=== PATIENT | male | born 1955 | race Caucasian/White ===

== ENCOUNTER 2021-01-04 08:52 | Emergency (ER) | payer OTHER ==
[2021-01-04 09:25] LABS: Urine Blood 3+ (Negative); Urine Glucose Negative (Negative); Urine Protein 3+ (Negative); Urine Specific Gravity >=1.030 (1.005-1.030)
--- NOTE | 2021-01-04 10:12 | EDPHYS ---
Physician Documentation [facility] Name: Carlos Woodall Age: 65 yrs Sex: Male : 1955 Arrival Date: 01/04/2021 Time: 08:55 Bed 5 Private MD: ED Physician Magdy Reid HPI: 01/04 09:16 This 65 yrs old Male presents to ER via Ambulatory with complaints of Urinary kdr Problem. 09:16 Onset: The symptoms/episode began/occurred 2 day(s) ago. Modifying factors: The kdr symptoms are alleviated by nothing, the symptoms are aggravated by urinating. Associated signs and symptoms: Pertinent positives: dysuria, fever, hematuria, nausea, Pertinent negatives: vomiting. Severity of symptoms: At their worst the symptoms were mild, moderate, just prior to arrival, in the emergency department the symptoms are unchanged. The patient has not experienced similar symptoms in the past. The patient has not recently seen a physician. The patient states that he has had pain with urination for the past 2 to 3 days. He denies any discharge from his penis prior to or during this episode. He has not had this kind of symptom before. He stated that he had obtained some ampicillin in [place] a few years ago and had been taking 1 of those every 6 hours for the last 2 days. He otherwise appears stable and nontoxic in the ED. Historical: - Allergies: 09:03 No Known Allergies; ss - Home Meds: 09:18 Metformin Oral [Active]; losartan oral [Active]; Allopurinol Oral [Active]; jl7 - PMHx: 09:18 Diabetes mellitus; Gout; Hypertensive disorder; jl7 - PSHx: 09:18 None; jl7 - Immunization history:: Client reports receiving the 2nd dose of the Covid vaccine. - Social history:: Smoking status: Patient denies any tobacco usage or history of. ROS: 09:16 Eyes: Negative for injury, pain, redness, and discharge, ENT: Negative for injury, kdr pain, and discharge, Neck: Negative for injury, pain, and swelling, Cardiovascular: Negative for chest pain, palpitations, and edema, Respiratory: Negative for shortness of breath, cough, wheezing, and pleuritic chest pain, Abdomen/GI: Negative for abdominal pain, nausea, vomiting, diarrhea, and constipation, Back: Negative for injury and pain, MS/Extremity: Negative for injury and deformity, Skin: Negative for injury, rash, and discoloration, Neuro: Negative for headache, weakness, numbness, tingling, and seizure activity. Psych: Negative for depression, anxiety, suicide ideation, homicidal ideation, and hallucinations, Allergy/Immunology: Negative for hives, rash, and allergies, Endocrine: Negative for neck swelling, polydipsia, polyuria, polyphagia, and marked weight changes, Hematologic/Lymphatic: Negative for swollen nodes, abnormal bleeding, and unusual bruising. 09:16 Constitutional: Positive for body aches, chills, fever, malaise. 09:16 : Positive for urinary symptoms, small amounts, hematuria, burning with urination, Negative for penile discharge, penile pain, testicular pain Exam: 09:16 Constitutional: This is a well developed, well nourished patient who is awake, alert, kdr and in no acute distress. Head/Face: Normocephalic, atraumatic. Eyes: Pupils equal round and reactive to light, extra-ocular motions intact. Lids and lashes normal. Conjunctiva and sclera are non-icteric and not injected. Cornea within normal limits. Periorbital areas with no swelling, redness, or edema. Neck: Trachea midline, no thyromegaly or masses palpated, and no cervical lymphadenopathy. Supple, full range of motion without nuchal rigidity, or vertebral point tenderness. No Meningismus. Chest/axilla: Normal chest wall appearance and motion. Nontender with no deformity. No lesions are appreciated. Cardiovascular: Regular rate and rhythm with a normal S1 and S2. No gallops, murmurs, or rubs. Normal PMI, no JVD. No pulse deficits. Respiratory: Lungs have equal breath sounds bilaterally, clear to auscultation and percussion. No rales, rhonchi or wheezes noted. No increased work of breathing, no retractions or nasal flaring. Abdomen/GI: Soft, non-tender, with normal bowel sounds. No distension or tympany. No guarding or rebound. No evidence of tenderness throughout. Back: No spinal tenderness. No costovertebral tenderness. Full range of motion. Skin: Warm, dry with normal turgor. Normal color with no rashes, no lesions, and no evidence of cellulitis. MS/ Extremity: Pulses equal, no cyanosis. Neurovascular intact. Full, normal range of motion. Neuro: Awake and alert, GCS 15, oriented to person, place, time, and situation. Cranial nerves II-XII grossly intact. Motor strength 5/5 in all extremities. Sensory grossly intact. Cerebellar exam normal. Normal gait. Psych: Awake, alert, with orientation to person, place and time. Behavior, mood, and affect are within normal limits. Vital Signs: 09:18 BP 110 / 63; Pulse 83; Resp 16; Temp 98; Pulse Ox 98% ; Pain 0/10; jl7 10:09 BP 118 / 63; Pulse 77; Resp 16; Pulse Ox 99% ; bp MDM: 09:16 Data reviewed: vital signs, nurses notes, lab test result(s), radiologic studies. kdr 10:11 Patient medically screened. kdr 01/04 09:11 Order name: Urine Culture kdr 01/04 09:24 Order name: Urine Dipstick-Ancillary; Complete Time: 10:09 EDNV 01/04 09:11 Order name: Urine Dipstick-Ancillary (obtain specimen); Complete Time: 09:11 kdr Administered Medications: 10:15 Drug: Bactrim (trimethoprim-sulfamethoxazole) (160 mg-800 mg (DS) 1 tablet Route: PO; jl7 10:22 Follow up: Response: Medication administered at discharge. jl7 10:15 Drug: Pyridium (phenazopyridine) 200 mg Route: PO; jl7 10:22 Follow up: Response: Medication administered at discharge. jl7 Disposition Summary: 01/04/21 10:11 Discharge Ordered Location: Home kdr Condition: Stable kdr Diagnosis - UTI/ Urinary tract infection, site not specified kdr - Acute cystitis with hematuria kdr Followup: kdr - With: Private Physician - When: 2 - 3 days - Reason: If symptoms return, Further diagnostic work-up, Recheck today's complaints, Continuance of care, Re-evaluation by your physician Followup: kdr - With: Wilberto Hines MD - When: 2 - 3 days - Reason: If symptoms return, Further diagnostic work-up, Recheck today's complaints, Continuance of care, Re-evaluation by your physician Discharge Instructions: - Discharge Summary Sheet kdr - Urinary Tract Infection, Adult, [id number] kdr Forms: - Medication Reconciliation Form kdr - Thank You Letter kdr - Antibiotic Education kdr Prescriptions: - Pyridium 200 mg Oral Tablet - take 1 tablet by ORAL route every 8 hours for 3 days; 9 tablet; Refills: 0, kdr Product Selection Permitted - Bactrim DS 800-160 mg Oral Tablet - take 1 tablet by ORAL route every 12 hours for 10 days; 20 tablet; Refills: 0, kdr Product Selection Permitted - Tylenol-Codeine #3 300 mg-30 mg Oral - take 1 tablet by ORAL route every 4-6 hours As needed; 10 tablet; Refills: 0, kdr Product Selection Permitted Signatures: Dispatcher [employer] EDMagdy Núñez MD MD kdr Claribel Farmer, NASIR RN ss Kathryn Monterroso RN RN jl7
--- NOTE | 2021-01-04 10:12 | ER ---
Nurse's Notes [facility] Name: Carlos Woodall Age: 65 yrs Sex: Male : 1955 Arrival Date: 01/04/2021 Time: 08:55 Bed 5 Private MD: Diagnosis: UTI/ Urinary tract infection, site not specified;Acute cystitis with hematuria Presentation: 01/04 09:01 Chief complaint: Patient states: Burning with urination, frequency and scant amount of ss blood in urine x 3 days. Coronavirus screen: Client denies travel out of the [place] in the last 14 days. Ebola Screen: Patient denies exposure to infectious person. Patient denies travel to an Ebola-affected area in the 21 days before illness onset. Initial Sepsis Screen: Does the patient meet any 2 criteria? No. Patient's initial sepsis screen is negative. Does the patient have a suspected source of infection? No. Patient's initial sepsis screen is negative. Risk Assessment: Do you want to hurt yourself or someone else? Patient reports no desire to harm self or others. Onset of symptoms was January 01, 2021. 09:01 Method Of Arrival: Ambulatory ss 09:01 Acuity: CRISTIANO 4 ss Triage Assessment: 09:18 General: Appears in no apparent distress. uncomfortable, Behavior is calm, cooperative, jl7 appropriate for age. Pain: Complains of pain in burning with urination Pain currently is 0 out of 10 on a pain scale. at worst was 6 out of 10 on a pain scale. Neuro: Level of Consciousness is awake, alert, obeys commands, Oriented to person, place, time, situation. Cardiovascular: Patient's skin is warm and dry. Respiratory: Airway is patent Respiratory effort is even, unlabored, Respiratory pattern is regular, symmetrical. : Reports burning with urination, since x 4 days pain with urination. Derm: Skin is pink, warm \T\ dry. Historical: - Allergies: 09:03 No Known Allergies; ss - Home Meds: 09:18 Metformin Oral [Active]; losartan oral [Active]; Allopurinol Oral [Active]; jl7 - PMHx: 09:18 Diabetes mellitus; Gout; Hypertensive disorder; jl7 - PSHx: 09:18 None; jl7 - Immunization history:: Client reports receiving the 2nd dose of the Covid vaccine. - Social history:: Smoking status: Patient denies any tobacco usage or history of. Screenin:04 Abuse screen: Denies threats or abuse. Denies injuries from another. Nutritional ss screening: No deficits noted. Tuberculosis screening: Never had TB. Fall Risk None identified. Assessment: 09:04 Reassessment: Pt ambulated to restroom with steady gait to give urine specimen. ss 09:20 General: See triage assessment. jl7 10:09 Reassessment: No changes from previously documented assessment. Patient and/or family bp updated on plan of care and expected duration. Pain level reassessed. Vital Signs: 09:18 BP 110 / 63; Pulse 83; Resp 16; Temp 98; Pulse Ox 98% ; Pain 0/10; jl7 10:09 BP 118 / 63; Pulse 77; Resp 16; Pulse Ox 99% ; bp ED Course: 08:55 Patient arrived in ED. mr 08:59 Kathryn Monterroso, RN is Primary Nurse. jl7 09:00 Patient has correct armband on for positive identification. Bed in low position. Call mh5 light in reach. Side rails up X 1. Warm blanket given. Pulse ox on. NIBP on. 09:02 Magdy Reid MD is Attending Physician. kdr 09:03 Triage completed. ss 09:03 Arm band placed on right wrist. ss 09:11 Urine Culture Sent. 5 09:11 Urine collected: clean catch specimen, ilya colored. 5 10:11 Wilberto Hines MD is Referral Physician. kdr 10:22 No provider procedures requiring assistance completed. Patient did not have IV access jl7 during this emergency room visit. Administered Medications: 10:15 Drug: Bactrim (trimethoprim-sulfamethoxazole) (160 mg-800 mg (DS) 1 tablet Route: PO; jl7 10:22 Follow up: Response: Medication administered at discharge. jl7 10:15 Drug: Pyridium (phenazopyridine) 200 mg Route: PO; jl7 10:22 Follow up: Response: Medication administered at discharge. jl7 Outcome: 10:11 Discharge ordered by . kdr 10:22 Discharged to home ambulatory. jl7 10:22 Condition: stable 10:22 Discharge instructions given to patient, Instructed on discharge instructions, follow up and referral plans. medication usage, Demonstrated understanding of instructions, follow-up care, medications, Prescriptions given X 3. 10:23 Patient left the ED. jl7 Signatures: Magdy Reid MD MD kdr Rivera, Harika mr Claribel Farmer, NASIR RN Belinda Winston [facility] Kathryn Monterroso RN RN jl7 Jt Limon RN RN bp
[2021-01-04 10:28] VITALS: TEMP 98
[2021-01-04 10:29] VITALS: BP 118/63; O2SAT 99
[2021-01-04] MEDS ORDERED: PHENAZOPYRIDINE 100MG TAB PO ONE (10:38)
[2021-01-04] MEDS ORDERED: SMZ./TMP. 800/160 MG TABLET ONE (10:38)
== END 2021-01-04 10:23 | disposition home or self-care (01) ==
LOC: ER 08:52
DX: N30.01 Acute cystitis with hematuria (principal); E11.9 Type 2 diabetes mellitus without complications; I10 Essential (primary) hypertension
CPT/HCPCS: 81003; 87086; 87088; 99284

== ENCOUNTER 2022-08-11 10:15 | Emergency (ER) | payer OTHER ==
--- OUTSIDE RECORDS SUMMARY | 2022-08-11 10:19 | XMS REPORT | Clinical Summary ---
:1955 Author Organization [facility] Address [address] [place] [address] Care Team Providers Name Role Phone Nathanael Jimenez MD Unavailable Misael Childress DO Unavailable Allergies Not on File Medications Not on file Active Problems Not on file Encounters Date Type Specialty Care Team Description 08/16/2021 Orders Only Head and Neck Surgery Nevaeh Pritchett PA after 08/11/2021 Social History Tobacco Use Types Packs/Day Years Used Date Smoking Tobacco: Never Assessed Sex Assigned at Date Recorded Not on file Job Start Date Occupation Industry Not on file Not on file Not on file Last Filed Vital Signs Not on file Plan of Treatment Health Maintenance Due Date Last Done Comments COVID-19 Vaccination (3 - Booster for 08/25/2020 06/30/2020 , 06/09/2020 Pfizer series) Results Not on fileafter 08/11/2021 Insurance Payer Benefit Plan / Subscriber ID Effective Dates Phone Addre ss Type Group HUMANA HUMANA GOLD [id number] 2020-Prese [address] [address] Medicare MEDICARE PLUS MEDICARE [facility] [phone] (Work) [id number] Carlos Woodall Personal/Family Self 1955 [address] [place] [address] Care Teams Credentialing Coordinator Relationship Specialty Start Date End Date Nathanael Jimenez MD PCP - External Referring Dermatology 07/18/21 [id number] [facility] [address] [place], [place] [id number] Misael Childress, PCP - External Primary Care Family Practice DO Provider [address] [place] [address] [address] [place], [place] [id number]
--- OUTSIDE RECORDS SUMMARY | 2022-08-11 10:22 | XMS REPORT | Continuity of Care Document ---
:1955 Author Organization [facility] t Address [address] [place] [address] [address] [place] [address] Care Team Providers Name Role Phone Misael Childress Attending Clinician Unavailable SYSTEM, PROVIDER NOT IN Attending Clinician Unavailable KOBE HDZ Attending Clinician Unavailable Nevaeh Cespedes Attending Clinician Unavailable KOBE HDZ Admitting Clinician Unavailable Payers Payer Name Policy Type Policy Number Effective Date Expiration Date S selena [employer] MEDICARE 53 [id number] 2020 [facility] 00:00:00 [facility] Problems Condition Condition Condition Status Onset Resolution Last Treating Co mments Source Name Details Category Date Date Treatment Clinician Date [id number] BPH loc w Problem Com mon urin [facility] obs/LUTS - [facility] [id number] Gross Problem Common hematuria [facility] [id number] Complicate Problem Com mon d UTI [facility] (urinary - [facility] tract [facility] infection) [facility] [id number] Decreased Problem Com mon hearing of [facility] right ear [facility] [id number] Other Problem Common chronic [facility] pain - [facility] Hearing Decreased Problem 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 [facility] [id number] Hepatitis, Problem Com mon chronic Spirit [facility] [id number] Noncomplia Problem Co mmon nce with [facility] dietary - [facility] restrictio n [facility] [id number] Type 2 [place] [id number] diabetes [facility] mellitus - [facility] with [facility] 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 [id number] Non-season Problem Com mon al [facility] allergic - [facility] rhinitis, [facility] [id number] GERD Problem Common without [facility] esophagiti - [facility] [id number] Chronic Problem Common gout of [facility] multiple - [facility] sites, [facility] [id number] Essential Problem Comm on hypertensi [facility] on - [facility] [id number] Mixed Problem Common hyperlipid [facility] emia - [facility] 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 Social History Social Habit Start Date Stop Date Quantity Comments Source History of Tobacco [facility] Sex Assigned At [birth year] [facility] 00:00:00 00:00:00 [place] [facility] Smoking Status Start Date Stop Date Source Never Smoker [facility] Medications Ordered Filled Start Stop Current Ordering Indication Dosage Frequency Signature Comments Components Source Medication Medication Date Date Medication? Clinician (SIG) Name Name Amoxicillin Amoxicillin 2022- No 1{table BID Amoxicilli -Pot -Pot 05-02 t} n-Pot Clavulanate Clavulanate 00:00: 00:00 Clavulanat 875-125 MG 875-125 MG 00 :00 e 875-125 MG Amoxicillin Amoxicillin 2022- No 1{table BID Amoxicilli -Pot -Pot 05-02 t} n-Pot Clavulanate Clavulanate 00:00: 00:00 Clavulanat 875-125 MG 875-125 MG 00 :00 e 875-125 MG Amoxicillin Amoxicillin 2022- No 1{table BID Amoxicilli -Pot -Pot 05-02 t} n-Pot Clavulanate Clavulanate 00:00: 00:00 Clavulanat 875-125 MG 875-125 MG 00 :00 e 875-125 MG methylPREDN methylPREDN 2021- No QD methylPRED ISolone 4 ISolone 4 01-07 NISolone 4 MG MG 00:00: 00:00 MG 00 :00 methylPREDN methylPREDN 2021- No QD methylPRED ISolone 4 ISolone 4 01-07 NISolone 4 MG MG 00:00: 00:00 MG 00 :00 methylPREDN methylPREDN 2021- No QD methylPRED ISolone 4 ISolone 4 01-07 NISolone 4 MG MG 00:00: 00:00 MG 00 :00 methylPREDN methylPREDN 2021- No QD methylPRED ISolone 4 ISolone 4 01-07 NISolone 4 MG MG 00:00: 00:00 MG 00 :00 Tamsulosin Tamsulosin 2020-04- No 1{capsu QD Tamsulosin HCl 0.4 MG HCl 0.4 MG 04-14 le} HCl 0.4 MG 00:00: 00:00 00 :00 Tamsulosin Tamsulosin 2020-04- No 1{capsu QD Tamsulosin HCl 0.4 MG HCl 0.4 MG 04-14 le} HCl 0.4 MG 00:00: 00:00 00 :00 Cefdinir Cefdinir 2020-04- No BID Cefdinir 300 MG 300 MG 04-14 300 MG 00:00: 00:00 00 :00 Cipro 500 Cipro 500 2020-04- No 1{table BID Cipro 500 MG MG 0-15 10-20 t} MG 00:00: 00:00 00 :00 Cipro 500 Cipro 500 2020-04- No 1{table BID Cipro 500 MG MG 0-15 10-20 t} MG 00:00: 00:00 00 :00 Promethazin Promethazin 2020-0 No 1{table Promethazi e HCl 12.5 e HCl 12.5 5-26 t_as_ne ne HCl MG MG 00:00: eded} 12.5 MG 00 Promethazin Promethazin 2021-0 No 1{table Promethazi e HCl 12.5 e HCl 12.5 5-26 t_as_ne ne HCl MG MG 00:00: eded} 12.5 MG 00 Promethazin Promethazin 2020-0 No 1{table Promethazi e HCl 12.5 e HCl 12.5 5-26 t_as_ne ne HCl MG MG 00:00: eded} 12.5 MG 00 Promethazin Promethazin 2020-0 No 1{table Promethazi e HCl 12.5 e HCl 12.5 5-26 t_as_ne ne HCl MG MG 00:00: eded} 12.5 MG 00 Promethazin Promethazin 2020-0 No 1{table Promethazi e HCl 12.5 e HCl 12.5 5-26 t_as_ne ne HCl MG MG 00:00: eded} 12.5 MG 00 Promethazin Promethazin 2020-0 No 1{table Promethazi e HCl 12.5 e HCl 12.5 5-26 t_as_ne ne HCl MG MG 00:00: eded} 12.5 MG 00 Promethazin Promethazin 2020-0 No 1{table Promethazi e HCl 12.5 e HCl 12.5 5-26 t_as_ne ne HCl MG MG 00:00: eded} 12.5 MG 00 Promethazin Promethazin 2020-0 No 1{table Promethazi e HCl 12.5 e HCl 12.5 5-26 t_as_ne ne HCl MG MG 00:00: eded} 12.5 MG 00 Promethazin Promethazin 1-0 No 1{table Promethazi e HCl 12.5 e HCl 12.5 5-26 t_as_ne ne HCl MG MG 00:00: eded} 12.5 MG 00 Promethazin Promethazin 1-0 No 1{table e HCl 12.5 e HCl 12.5 5-26 t_as_ne MG MG 00:00: eded} 00 Promethazin Promethazin 1-0 No 1{table Promethazi e HCl 12.5 e HCl 12.5 5-26 t_as_ne ne HCl MG MG 00:00: eded} 12.5 MG 00 Promethazin Promethazin 2020-0 No 1{table Promethazi e HCl 12.5 e HCl 12.5 5-26 t_as_ne ne HCl MG MG 00:00: eded} 12.5 MG 00 Promethazin Promethazin 2020-0 No 1{table Promethazi e HCl 12.5 e HCl 12.5 5-26 t_as_ne ne HCl MG MG 00:00: eded} 12.5 MG 00 Promethazin Promethazin 2020-0 No 1{table Promethazi e HCl 12.5 e HCl 12.5 5-26 t_as_ne ne HCl MG MG 00:00: eded} 12.5 MG 00 Promethazin Promethazin 2020-0 No 1{table Promethazi e HCl 12.5 e HCl 12.5 5-26 t_as_ne ne HCl MG MG 00:00: eded} 12.5 MG 00 Promethazin Promethazin 2020-0 No 1{table Promethazi e HCl 12.5 e HCl 12.5 5-26 t_as_ne ne HCl MG MG 00:00: eded} 12.5 MG 00 Promethazin Promethazin 2020-0 No 1{table Promethazi e HCl 12.5 e HCl 12.5 5-26 t_as_ne ne HCl MG MG 00:00: eded} 12.5 MG 00 Promethazin Promethazin 2020-0 No 1{table Promethazi e HCl 12.5 e HCl 12.5 5-26 t_as_ne ne HCl MG MG 00:00: eded} 12.5 MG 00 Promethazin Promethazin 1-0 No 1{table Promethazi e HCl 12.5 e HCl 12.5 5-26 t_as_ne ne HCl MG MG 00:00: eded} 12.5 MG 00 Promethazin Promethazin 1-0 No 1{table Promethazi e HCl 12.5 e HCl 12.5 5-26 t_as_ne ne HCl MG MG 00:00: eded} 12.5 MG 00 Promethazin Promethazin 1-0 No 1{table Promethazi e HCl 12.5 e HCl 12.5 5-26 t_as_ne ne HCl MG MG 00:00: eded} 12.5 MG 00 Promethazin Promethazin 2020-0 No 1{table Promethazi e HCl 12.5 e HCl 12.5 5-26 t_as_ne ne HCl MG MG 00:00: eded} 12.5 MG 00 Promethazin Promethazin 2020-0 No 1{table Promethazi e HCl 12.5 e HCl 12.5 5-26 t_as_ne ne HCl MG MG 00:00: eded} 12.5 MG 00 Promethazin Promethazin 2020-0 No 1{table Promethazi e HCl 12.5 e HCl 12.5 5-26 t_as_ne ne HCl MG MG 00:00: eded} 12.5 MG 00 Promethazin Promethazin 2020-0 No 1{table Promethazi e HCl 12.5 e HCl 12.5 5-26 t_as_ne ne HCl MG MG 00:00: eded} 12.5 MG 00 Promethazin Promethazin 2020-0 No 1{table Promethazi e HCl 12.5 e HCl 12.5 5-26 t_as_ne ne HCl MG MG 00:00: eded} 12.5 MG 00 Promethazin Promethazin 2020-0 No 1{table Promethazi e HCl 12.5 e HCl 12.5 5-26 t_as_ne ne HCl MG MG 00:00: eded} 12.5 MG 00 Promethazin Promethazin 2020-0 No 1{table Promethazi e HCl 12.5 e HCl 12.5 5-26 t_as_ne ne HCl MG MG 00:00: eded} 12.5 MG 00 Tamsulosin Tamsulosin No 1{capsu QD Tamsulosin HCl 0.4 MG HCl 0.4 MG le} HCl 0.4 MG Losartan Losartan No Losartan Potassium Potassium Potassium 25 MG 25 MG 25 MG Benzonatate Benzonatate No 1{capsu TID Benzonatat 200 MG 200 MG le} e 200 MG Losartan Losartan No Losartan Potassium Potassium Potassium 25 MG 25 MG 25 MG Tumersaid Tumersaid No Tumersaid Allopurinol Allopurinol No 1{table QD Allopurino 300 MG 300 MG t} l 300 MG metFORMIN metFORMIN No metFORMIN HCl ER 750 HCl ER 750 HCl ER 750 MG MG MG Losartan Losartan No Losartan Potassium Potassium Potassium 25 MG 25 MG 25 MG Tumersaid Tumersaid No Tumersaid Allopurinol Allopurinol No 1{table QD Allopurino 300 MG 300 MG t} l 300 MG metFORMIN metFORMIN No metFORMIN HCl ER 750 HCl ER 750 HCl ER 750 MG MG MG Losartan Losartan No Losartan Potassium Potassium Potassium 25 MG 25 MG 25 MG metFORMIN metFORMIN No metFORMIN HCl ER 750 HCl ER 750 HCl ER 750 MG MG MG Allopurinol Allopurinol No 1{table QD Allopurino 300 MG 300 MG t} l 300 MG Tumersaid Tumersaid No Tumersaid Losartan Losartan No Losartan Potassium Potassium Potassium 25 MG 25 MG 25 MG metFORMIN metFORMIN No metFORMIN HCl ER 750 HCl ER 750 HCl ER 750 MG MG MG Allopurinol Allopurinol No 1{table QD Allopurino 300 MG 300 MG t} l 300 MG Tumersaid Tumersaid No Tumersaid metFORMIN metFORMIN No metFORMIN HCl ER 750 HCl ER 750 HCl ER 750 MG MG MG Tumersaid Tumersaid No Tumersaid Losartan Losartan No 1{table QD Losartan Potassium Potassium t} Potassium 25 MG 25 MG 25 MG Losartan Losartan No Losartan Potassium Potassium Potassium 25 MG 25 MG 25 MG metFORMIN metFORMIN No BID metFORMIN HCl ER 750 HCl ER 750 HCl ER 750 MG MG MG Allopurinol Allopurinol No 1{table QD Allopurino 300 MG 300 MG t} l 300 MG Losartan Losartan No 1{table QD Losartan Potassium Potassium t} Potassium 25 MG 25 MG 25 MG metFORMIN metFORMIN No metFORMIN HCl ER 750 HCl ER 750 HCl ER 750 MG MG MG Tumersaid Tumersaid No Tumersaid Tamsulosin Tamsulosin No 1{capsu QD Tamsulosin HCl 0.4 MG HCl 0.4 MG le} HCl 0.4 MG Losartan Losartan No Losartan Potassium Potassium Potassium 25 MG 25 MG 25 MG metFORMIN metFORMIN No BID metFORMIN HCl ER 750 HCl ER 750 HCl ER 750 MG MG MG Allopurinol Allopurinol No 1{table QD Allopurino 300 MG 300 MG t} l 300 MG metFORMIN metFORMIN No metFORMIN HCl ER 750 HCl ER 750 HCl ER 750 MG MG MG Allopurinol Allopurinol No 1{table QD Allopurino 300 MG 300 MG t} l 300 MG Tamsulosin Tamsulosin No 1{capsu QD Tamsulosin HCl 0.4 MG HCl 0.4 MG le} HCl 0.4 MG Losartan Losartan No Losartan Potassium Potassium Potassium 25 MG 25 MG 25 MG Tumersaid Tumersaid No Tumersaid metFORMIN metFORMIN No metFORMIN HCl ER 750 HCl ER 750 HCl ER 750 MG MG MG Allopurinol Allopurinol No 1{table QD Allopurino 300 MG 300 MG t} l 300 MG Tamsulosin Tamsulosin No 1{capsu QD Tamsulosin HCl 0.4 MG HCl 0.4 MG le} HCl 0.4 MG Losartan Losartan No Losartan Potassium Potassium Potassium 25 MG 25 MG 25 MG Tumersaid Tumersaid No Tumersaid Tamsulosin Tamsulosin No 1{capsu QD HCl 0.4 MG HCl 0.4 MG le} Allopurinol Allopurinol No 1{table QD 300 MG 300 MG t} Tumersaid Tumersaid No metFORMIN metFORMIN No HCl ER 750 HCl ER 750 MG MG Losartan Losartan No Potassium Potassium 25 MG 25 MG metFORMIN metFORMIN No QD metFORMIN HCl ER 750 HCl ER 750 HCl ER 750 MG MG MG metFORMIN metFORMIN No metFORMIN HCl ER 750 HCl ER 750 HCl ER 750 MG MG MG Losartan Losartan No 1{table QD Losartan Potassium Potassium t} Potassium 25 MG 25 MG 25 MG Allopurinol Allopurinol No 1{table QD Allopurino 300 MG 300 MG t} l 300 MG Losartan Losartan No Losartan Potassium Potassium Potassium 25 MG 25 MG 25 MG Tamsulosin Tamsulosin No 1{capsu QD Tamsulosin HCl 0.4 MG HCl 0.4 MG le} HCl 0.4 MG Tumersaid Tumersaid No Tumersaid metFORMIN metFORMIN No QD metFORMIN HCl ER 750 HCl ER 750 HCl ER 750 MG MG MG metFORMIN metFORMIN No metFORMIN HCl ER 750 HCl ER 750 HCl ER 750 MG MG MG Losartan Losartan No 1{table QD Losartan Potassium Potassium t} Potassium 25 MG 25 MG 25 MG Allopurinol Allopurinol No 1{table QD Allopurino 300 MG 300 MG t} l 300 MG Losartan Losartan No Losartan Potassium Potassium Potassium 25 MG 25 MG 25 MG Tamsulosin Tamsulosin No 1{capsu QD Tamsulosin HCl 0.4 MG HCl 0.4 MG le} HCl 0.4 MG Tumersaid Tumersaid No Tumersaid metFORMIN metFORMIN No QD metFORMIN HCl ER 750 HCl ER 750 HCl ER 750 MG MG MG metFORMIN metFORMIN No metFORMIN HCl ER 750 HCl ER 750 HCl ER 750 MG MG MG Losartan Losartan No 1{table QD Losartan Potassium Potassium t} Potassium 25 MG 25 MG 25 MG Allopurinol Allopurinol No 1{table QD Allopurino 300 MG 300 MG t} l 300 MG Losartan Losartan No Losartan Potassium Potassium Potassium 25 MG 25 MG 25 MG Tamsulosin Tamsulosin No 1{capsu QD Tamsulosin HCl 0.4 MG HCl 0.4 MG le} HCl 0.4 MG Tumersaid Tumersaid No Tumersaid metFORMIN metFORMIN No QD metFORMIN HCl ER 750 HCl ER 750 HCl ER 750 MG MG MG metFORMIN metFORMIN No metFORMIN HCl ER 750 HCl ER 750 HCl ER 750 MG MG MG Losartan Losartan No 1{table QD Losartan Potassium Potassium t} Potassium 25 MG 25 MG 25 MG Allopurinol Allopurinol No 1{table QD Allopurino 300 MG 300 MG t} l 300 MG Losartan Losartan No Losartan Potassium Potassium Potassium 25 MG 25 MG 25 MG Tamsulosin Tamsulosin No 1{capsu QD Tamsulosin HCl 0.4 MG HCl 0.4 MG le} HCl 0.4 MG Tumersaid Tumersaid No Tumersaid metFORMIN metFORMIN No QD metFORMIN HCl ER 750 HCl ER 750 HCl ER 750 MG MG MG metFORMIN metFORMIN No metFORMIN HCl ER 750 HCl ER 750 HCl ER 750 MG MG MG Losartan Losartan No 1{table QD Losartan Potassium Potassium t} Potassium 25 MG 25 MG 25 MG Allopurinol Allopurinol No 1{table QD Allopurino 300 MG 300 MG t} l 300 MG Losartan Losartan No Losartan Potassium Potassium Potassium 25 MG 25 MG 25 MG Tamsulosin Tamsulosin No 1{capsu QD Tamsulosin HCl 0.4 MG HCl 0.4 MG le} HCl 0.4 MG Tumersaid Tumersaid No Tumersaid metFORMIN metFORMIN No QD metFORMIN HCl ER 750 HCl ER 750 HCl ER 750 MG MG MG metFORMIN metFORMIN No metFORMIN HCl ER 750 HCl ER 750 HCl ER 750 MG MG MG Losartan Losartan No 1{table QD Losartan Potassium Potassium t} Potassium 25 MG 25 MG 25 MG Allopurinol Allopurinol No 1{table QD Allopurino 300 MG 300 MG t} l 300 MG Losartan Losartan No Losartan Potassium Potassium Potassium 25 MG 25 MG 25 MG Tamsulosin Tamsulosin No 1{capsu QD Tamsulosin HCl 0.4 MG HCl 0.4 MG le} HCl 0.4 MG Tumersaid Tumersaid No Tumersaid metFORMIN metFORMIN No QD metFORMIN HCl ER 750 HCl ER 750 HCl ER 750 MG MG MG metFORMIN metFORMIN No metFORMIN HCl ER 750 HCl ER 750 HCl ER 750 MG MG MG Losartan Losartan No 1{table QD Losartan Potassium Potassium t} Potassium 25 MG 25 MG 25 MG Allopurinol Allopurinol No 1{table QD Allopurino 300 MG 300 MG t} l 300 MG Losartan Losartan No Losartan Potassium Potassium Potassium 25 MG 25 MG 25 MG Tamsulosin Tamsulosin No 1{capsu QD Tamsulosin HCl 0.4 MG HCl 0.4 MG le} HCl 0.4 MG Tumersaid Tumersaid No Tumersaid metFORMIN metFORMIN No QD metFORMIN HCl ER 750 HCl ER 750 HCl ER 750 MG MG MG metFORMIN metFORMIN No metFORMIN HCl ER 750 HCl ER 750 HCl ER 750 MG MG MG Losartan Losartan No Losartan Potassium Potassium Potassium 25 MG 25 MG 25 MG Tamsulosin Tamsulosin No 1{capsu QD Tamsulosin HCl 0.4 MG HCl 0.4 MG le} HCl 0.4 MG Tumersaid Tumersaid No Tumersaid metFORMIN metFORMIN No metFORMIN HCl ER 750 HCl ER 750 HCl ER 750 MG MG MG Tamsulosin Tamsulosin No 1{capsu QD Tamsulosin HCl 0.4 MG HCl 0.4 MG le} HCl 0.4 MG Losartan Losartan No 1{table QD Losartan Potassium Potassium t} Potassium 25 MG 25 MG 25 MG Losartan Losartan No Losartan Potassium Potassium Potassium 25 MG 25 MG 25 MG Allopurinol Allopurinol No 1{table QD Allopurino 300 MG 300 MG t} l 300 MG Tumersaid Tumersaid No Tumersaid metFORMIN metFORMIN No metFORMIN HCl ER 750 HCl ER 750 HCl ER 750 MG MG MG Tumersaid Tumersaid No Tumersaid Allopurinol Allopurinol No 1{table QD Allopurino 300 MG 300 MG t} l 300 MG Losartan Losartan No 1{table QD Losartan Potassium Potassium t} Potassium 25 MG 25 MG 25 MG Tamsulosin Tamsulosin No 1{capsu QD Tamsulosin HCl 0.4 MG HCl 0.4 MG le} HCl 0.4 MG Losartan Losartan No Losartan Potassium Potassium Potassium 25 MG 25 MG 25 MG Benzonatate Benzonatate No 1{capsu TID Benzonatat 200 MG 200 MG le} e 200 MG metFORMIN metFORMIN No metFORMIN HCl ER 750 HCl ER 750 HCl ER 750 MG MG MG Tumersaid Tumersaid No Tumersaid Allopurinol Allopurinol No 1{table QD Allopurino 300 MG 300 MG t} l 300 MG Losartan Losartan No 1{table QD Losartan Potassium Potassium t} Potassium 25 MG 25 MG 25 MG Tamsulosin Tamsulosin No 1{capsu QD Tamsulosin HCl 0.4 MG HCl 0.4 MG le} HCl 0.4 MG Losartan Losartan No Losartan Potassium Potassium Potassium 25 MG 25 MG 25 MG Benzonatate Benzonatate No 1{capsu TID Benzonatat 200 MG 200 MG le} e 200 MG Benzonatate Benzonatate No 1{capsu TID Benzonatat 200 MG 200 MG le} e 200 MG Allopurinol Allopurinol No 1{table QD Allopurino 300 MG 300 MG t} l 300 MG metFORMIN metFORMIN No metFORMIN HCl ER 750 HCl ER 750 HCl ER 750 MG MG MG Losartan Losartan No Losartan Potassium Potassium Potassium 25 MG 25 MG 25 MG Losartan Losartan No 1{table QD Losartan Potassium Potassium t} Potassium 25 MG 25 MG 25 MG Allopurinol Allopurinol No Allopurino 300 MG 300 MG l 300 MG Tamsulosin Tamsulosin No 1{capsu QD Tamsulosin HCl 0.4 MG HCl 0.4 MG le} HCl 0.4 MG Tumersaid Tumersaid No Tumersaid Losartan Losartan No Losartan Potassium Potassium Potassium 25 MG 25 MG 25 MG Allopurinol Allopurinol No 1{table QD Allopurino 300 MG 300 MG t} l 300 MG Benzonatate Benzonatate No 1{capsu TID Benzonatat 200 MG 200 MG le} e 200 MG metFORMIN metFORMIN No metFORMIN HCl ER 750 HCl ER 750 HCl ER 750 MG MG MG Tumersaid Tumersaid No Tumersaid Tamsulosin Tamsulosin No 1{capsu QD Tamsulosin HCl 0.4 MG HCl 0.4 MG le} HCl 0.4 MG Losartan Losartan No Losartan Potassium Potassium Potassium 25 MG 25 MG 25 MG Allopurinol Allopurinol No 1{table QD Allopurino 300 MG 300 MG t} l 300 MG Benzonatate Benzonatate No 1{capsu TID Benzonatat 200 MG 200 MG le} e 200 MG metFORMIN metFORMIN No metFORMIN HCl ER 750 HCl ER 750 HCl ER 750 MG MG MG Tumersaid Tumersaid No Tumersaid Tamsulosin Tamsulosin No 1{capsu QD Tamsulosin HCl 0.4 MG HCl 0.4 MG le} HCl 0.4 MG Losartan Losartan No Losartan Potassium Potassium Potassium 25 MG 25 MG 25 MG Allopurinol Allopurinol No 1{table QD Allopurino 300 MG 300 MG t} l 300 MG Benzonatate Benzonatate No 1{capsu TID Benzonatat 200 MG 200 MG le} e 200 MG metFORMIN metFORMIN No metFORMIN HCl ER 750 HCl ER 750 HCl ER 750 MG MG MG Tumersaid Tumersaid No Tumersaid Tamsulosin Tamsulosin No 1{capsu QD Tamsulosin HCl 0.4 MG HCl 0.4 MG le} HCl 0.4 MG Losartan Losartan No Losartan Potassium Potassium Potassium 25 MG 25 MG 25 MG Tamsulosin Tamsulosin No 1{capsu QD Tamsulosin HCl 0.4 MG HCl 0.4 MG le} HCl 0.4 MG Allopurinol Allopurinol No Allopurino 300 MG 300 MG l 300 MG Benzonatate Benzonatate No 1{capsu TID Benzonatat 200 MG 200 MG le} e 200 MG metFORMIN metFORMIN No metFORMIN HCl ER 750 HCl ER 750 HCl ER 750 MG MG MG Tumersaid Tumersaid No Tumersaid Losartan Losartan No Losartan Potassium Potassium Potassium 25 MG 25 MG 25 MG Tamsulosin Tamsulosin No 1{capsu QD Tamsulosin HCl 0.4 MG HCl 0.4 MG le} HCl 0.4 MG Allopurinol Allopurinol No Allopurino 300 MG 300 MG l 300 MG Benzonatate Benzonatate No 1{capsu TID Benzonatat 200 MG 200 MG le} e 200 MG metFORMIN metFORMIN No metFORMIN HCl ER 750 HCl ER 750 HCl ER 750 MG MG MG Tumersaid Tumersaid No Tumersaid metFORMIN metFORMIN No metFORMIN HCl ER 750 HCl ER 750 HCl ER 750 MG MG MG Tumersaid Tumersaid No Tumersaid Allopurinol Allopurinol No 1{table QD Allopurino 300 MG 300 MG t} l 300 MG Losartan Losartan No 1{table QD Losartan Potassium Potassium t} Potassium 25 MG 25 MG 25 MG Tamsulosin Tamsulosin No 1{capsu QD Tamsulosin HCl 0.4 MG HCl 0.4 MG le} HCl 0.4 MG Losartan Losartan No Losartan Potassium Potassium Potassium 25 MG 25 MG 25 MG Benzonatate Benzonatate No 1{capsu TID Benzonatat 200 MG 200 MG le} e 200 MG metFORMIN metFORMIN No metFORMIN HCl ER 750 HCl ER 750 HCl ER 750 MG MG MG Tumersaid Tumersaid No Tumersaid Allopurinol Allopurinol No 1{table QD Allopurino 300 MG 300 MG t} l 300 MG Losartan Losartan No 1{table QD Losartan Potassium Potassium t} Potassium 25 MG 25 MG 25 MG Allopurinol Allopurinol No 1{table QD Allopurino 300 MG 300 MG 10-17 t} l 300 MG 00:00 :00 Immunizations Ordered Immunization Filled Immunization Date Status Commen ts Source Name Name Prevnar 20 (PCV20) Prevnar 20 (PCV20) 2021-07-04 [facility] Prevnar 20 (PCV20) Prevnar 20 (PCV20) 2021-07-04 [facility] Prevnar 20 (PCV20) Prevnar 20 (PCV20) 2021-07-04 [facility] Prevnar 20 (PCV20) Prevnar 20 (PCV20) 2021-07-04 [facility]pleted [facility]00 [facility] Prevnar 20 (PCV20) Prevnar 20 (PCV20) 2021-07-04 [facility]pleted [facility] Prevnar 20 (PCV20) Prevnar 20 (PCV20) 2021-07-04 [facility]pleted [facility] Prevnar 20 (PCV20) Prevnar 20 (PCV20) 2021-07-04 [facility]pleted [facility]:15[facility]00 [facility] Prevnar 20 (PCV20) Prevnar 20 (PCV20) 2021-07-04 [facility]pleted [facility] Prevnar 20 (PCV20) Prevnar 20 (PCV20) 2021-07-04 [facility]pleted [facility] Prevnar 20 (PCV20) Prevnar 20 (PCV20) 2021-07-04 Completed [facility]:15[facility]00 [facility] Prevnar 20 (PCV20) Prevnar 20 (PCV20) 2021-07-04 [facility]pleted [facility]00 [facility] Prevnar 20 (PCV20) Prevnar 20 (PCV20) 2021-07-04 [facility]pleted [facility]00 [facility] Prevnar 20 (PCV20) Prevnar 20 (PCV20) 2021-07-04 Completed [facility] Prevnar 20 (PCV20) Prevnar 20 (PCV20) 2021-07-04 Completed [facility]:15[facility]00 [facility] Prevnar 20 (PCV20) Prevnar 20 (PCV20) 2021-07-04 Completed [facility]:15[facility]00 [facility] Prevnar 20 (PCV20) Prevnar 20 (PCV20) 2021-07-04 Completed [facility] Prevnar 20 (PCV20) Prevnar 20 (PCV20) 2021-07-04 [facility]pleted [facility] Prevnar 20 (PCV20) Prevnar 20 (PCV20) 2021-07-04 [facility]pleted [facility] Prevnar 20 (PCV20) Prevnar 20 (PCV20) 2021-07-04 Completed [facility]:15:[facility] Pneumovax (PPSV23) Pneumovax (PPSV23) 2016-04-12 Completed [facility] Pneumovax (PPSV23) Pneumovax (PPSV23) 2016-04-12 Completed [facility]:04[facility]00 [facility] Pneumovax (PPSV23) Pneumovax (PPSV23) 2016-04-12 Completed [facility]:04:00 [facility] Pneumovax (PPSV23) Pneumovax (PPSV23) 2016-04-12 Completed [facility]:04:00 [facility] Pneumovax (PPSV23) Pneumovax (PPSV23) 2016-04-12 Completed [facility]:04[facility]00 [facility] Pneumovax (PPSV23) Pneumovax (PPSV23) 2016-04-12 Completed [facility]:04:00 [facility] Pneumovax (PPSV23) Pneumovax (PPSV23) 2016-04-12 Completed [facility]:04:00 [facility] Pneumovax (PPSV23) Pneumovax (PPSV23) 2016-04-12 Completed [facility]:04[facility] Pneumovax (PPSV23) Pneumovax (PPSV23) 2016-04-12 Completed [facility]:04[facility] Pneumovax (PPSV23) Pneumovax (PPSV23) 2016-04-12 Completed [facility]:04:[facility] Pneumovax (PPSV23) Pneumovax (PPSV23) 2016-04-12 Completed [facility]:04[facility] Pneumovax (PPSV23) Pneumovax (PPSV23) 2016-04-12 Completed [facility] Pneumovax (PPSV23) Pneumovax (PPSV23) 2016-04-12 Completed [facility]:04[facility] Pneumovax (PPSV23) Pneumovax (PPSV23) 2016-04-12 Completed [facility]:04[facility] Pneumovax (PPSV23) Pneumovax (PPSV23) 2016-04-12 [facility] Pneumovax (PPSV23) Pneumovax (PPSV23) 2016-04-12 [facility]pleted [facility] - [facility] Pneumovax (PPSV23) Pneumovax (PPSV23) 2016-04-12 Completed [facility]:04:[facility] - [facility] Pneumovax (PPSV23) Pneumovax (PPSV23) 2016-04-12 Completed [facility]:04:[facility] - [facility] Pneumovax (PPSV23) Pneumovax (PPSV23) 2016-04-12 Completed [facility]:04:[facility] - [facility] Pneumovax (PPSV23) Pneumovax (PPSV23) 2016-04-12 Completed [facility]:04:[facility] - [facility] Pneumovax (PPSV23) Pneumovax (PPSV23) 2016-04-12 Completed [facility] 11:04:00 [facility] Pneumovax (PPSV23) Pneumovax (PPSV23) 2016-04-12 Completed [facility]:04:[facility] - [facility] Pneumovax (PPSV23) Pneumovax (PPSV23) 2016-04-12 Completed [facility] 11[facility]04:00 [facility] Pneumovax (PPSV23) Pneumovax (PPSV23) 2016-04-12 Completed [facility] 11:04:00 [facility] Pneumovax (PPSV23) Pneumovax (PPSV23) 2016-04-12 Completed [facility]:04:[facility] - [facility] Pneumovax (PPSV23) Pneumovax (PPSV23) 2016-04-12 Completed [facility]:04:[facility] Pneumovax (PPSV23) Pneumovax (PPSV23) 2016-04-12 Completed [facility] 11:04:00 [facility] Pneumovax (PPSV23) Pneumovax (PPSV23) 2016-04-12 Completed [facility] 11:04:00 [facility] Vital Signs Vital Name Observation Time Observation Value Comments Source height 2022-05-02 11:00:00 73 [in_i] [facility] weight 2022-05-02 11:00:00 208.2 [lb_av] [facility] temperature 2022-05-02 11:00:00 97.9 [degF] [facility] bmi 2022-05-02 11:00:00 27.47 kg/m2 [facility] oximetry 2022-05-02 11:00:00 98 % [facility] respiratory rate 2022-05-02 11:00:00 17 /min Comm on [facility] blood pressure 2022-05-02 11:00:00 138 mm[Hg] [facility] - systolic [facility] blood pressure 2022-05-02 11:00:00 73 mm[Hg] [facility] - diastolic [facility] height 2022-03-10 10:30:00 73 [in_i] [facility] weight 2022-03-10 10:30:00 209.4 [lb_av] [facility] temperature 2022-03-10 10:30:00 97.5 [degF] Common [facility] bmi 2022-03-10 10:30:00 27.62 kg/m2 [facility] oximetry 2022-03-10 10:30:00 97 % [facility] respiratory rate 2022-03-10 10:30:00 17 /min Comm on [facility] blood pressure 2022-03-10 10:30:00 138 mm[Hg] [facility] - systolic [facility] blood pressure 2022-03-10 10:30:00 70 mm[Hg] [facility] - diastolic [facility] height 2022-01-07 16:30:00 73 [in_i] [facility] weight 2022-01-07 16:30:00 205.2 [lb_av] Common [facility] bmi 2022-01-07 16:30:00 27.07 kg/m2 [facility] height 2021-11-04 10:20:00 73 [in_i] [facility] weight 2021-11-04 10:20:00 205.2 [lb_av] [facility] temperature 2021-11-04 10:20:00 97.4 [degF] [facility] bmi 2021-11-04 10:20:00 27.07 kg/m2 [facility] oximetry 2021-11-04 10:20:00 97 % [facility] respiratory rate 2021-11-04 10:20:00 18 /min Comm on [facility] blood pressure 2021-11-04 10:20:00 135 mm[Hg] [facility] - systolic [facility] blood pressure 2021-11-04 10:20:00 73 mm[Hg] [facility] height 2021-07-04 10:50:00 73 [in_i] [facility] weight 2021-07-04 10:50:00 209.9 [lb_av] [facility] temperature 2021-07-04 10:50:00 97.9 [degF] [facility] bmi 2021-07-04 10:50:00 27.69 kg/m2 [facility] oximetry 2021-07-04 10:50:00 98 % [facility] respiratory rate 2021-07-04 10:50:00 17 /min Comm on [facility] blood pressure 2021-07-04 10:50:00 139 mm[Hg] [facility] - systolic [facility] blood pressure 2021-07-04 10:50:00 78 mm[Hg] [facility] height 2021-07-04 10:00:00 73 [in_i] [facility] weight 2021-07-04 10:00:00 209.9 [lb_av] [facility] temperature 2021-07-04 10:00:00 97.9 [degF] [facility] bmi 2021-07-04 10:00:00 27.69 kg/m2 [facility] oximetry 2021-07-04 10:00:00 98 % [facility] respiratory rate 2021-07-04 10:00:00 17 /min Comm on [facility] blood pressure 2021-07-04 10:00:00 139 mm[Hg] [facility] blood pressure 2021-07-04 10:00:00 78 mm[Hg] [facility] - diastolic [facility] height 2021-04-24 13:30:00 73 [in_i] [facility] weight 2021-04-24 13:30:00 208.8 [lb_av] [facility] temperature 2021-04-24 13:30:00 97 [degF] [facility] bmi 2021-04-24 13:30:00 27.54 kg/m2 [facility] oximetry 2021-04-24 13:30:00 97 % [facility] respiratory rate 2021-04-24 13:30:00 16 /min [facility] on [facility] blood pressure 2021-04-24 13:30:00 142 mm[Hg] [facility] systolic [facility] blood pressure 2021-04-24 13:30:00 72 mm[Hg] [facility] - diastolic [facility] height 2021-03-06 10:50:00 73 [in_i] [facility] weight 2021-03-06 10:50:00 208.6 [lb_av] [facility] temperature 2021-03-06 10:50:00 97.5 [degF] [facility] bmi 2021-03-06 10:50:00 27.52 kg[facility]m2 [facility] 2021-03-06 10:50:00 99 % [facility] respiratory rate 2021-03-06 10:50:00 18 /min Comm on [facility] blood pressure 2021-03-06 10:50:00 132 mm[Hg] [facility] systolic [facility] blood pressure 2021-03-06 10:50:00 77 mm[Hg] [facility] - diastolic [facility] height 2021-02-12 09:40:00 73 [in_i] [facility] weight 2021-02-12 09:40:00 209.4 [lb_av] [facility] temperature 2021-02-12 09:40:00 96.4 [degF] [facility] bmi 2021-02-12 09:40:00 27.62 kg/m2 [facility] oximetry 2021-02-12 09:40:00 97 % [facility] blood pressure 2021-02-12 09:40:00 142 mm[Hg] [facility] - systolic [facility] blood pressure 2021-02-12 09:40:00 70 mm[Hg] [facility] - diastolic [facility] height 2021-01-25 11:00:00 73 [in_i] [facility] weight 2021-01-25 11:00:00 207.8 [lb_av] [facility] temperature 2021-01-25 11:00:00 96.8 [degF] [facility] bmi 2021-01-25 11:00:00 27.41 kg/m2 [facility] oximetry 2021-01-25 11:00:00 95 % [facility] respiratory rate 2021-01-25 11:00:00 18 /min Comm on [facility] blood pressure 2021-01-25 11:00:00 120 mm[Hg] [facility] systolic [facility] blood pressure 2021-01-25 11:00:00 70 mm[Hg] [facility] diastolic [facility] Procedures This patient has no known procedures. Plan of Care Planned Activity Planned Date Details Comments Source Future Scheduled 2022 COVID-19 Vaccination Uni versity [facility] Test 14:27:54 (3 - Booster for MD Isael Cancer Pfizer series) [code Center = COVID-19 Vaccination (3 - Booster for Pfizer series)] Encounters Start End Encounter Admission Attending Care Care Encounter Source Date/Time Date/Time Type Type Clinicians Facility Department ID 2022-07-04 Outpatient ChildressJAROD [facility] [id number] Common 10:35:02 Misael [id number] [facility] 2022-03-21 Outpatient ChildressJAROD ny [facility] [id number] Common 13:08:01 Misael [id number] [facility] 2022-03-05 Outpatient Childress, STLMLC STLMLC [id number] Common 08:11:01 Misael [facility] 2021-07-24 Outpatient Childress, STLMLC STLMLC [id number] Common 16:04:01 Misael [facility] 2021-07-19 Outpatient SYSTEM, MDA CHRIS [id number] 13:07:30 PROVIDER Tony granger 2021-07-08 Outpatient Childress, STLMLC STLMLC [id number] Common 11:13:01 Misael [facility] 2021-07-04 Outpatient Childress, STLMLC STLMLC [id number] Common 09:53:03 Misael [facility] 2021-05-28 Outpatient Childress, STLMLC STLMLC [id number] Common 08:59:01 Misael [facility] 2021-05-08 Outpatient Childress, STLMLC STLMLC [id number] Common 14:32:53 Misael [facility] 2021-05-08 Outpatient Childress, STLMLC STLMLC [id number] Common 14:31:19 Misael [facility] 2021-05-08 Outpatient Childress, STLMLC STLMLC [id number] Common 14:29:57 Misael [facility] 2021-05-08 Outpatient Childress, STLMLC STLMLC [id number] Common 14:07:34 Misael [id number] [facility] 2021-05-08 Outpatient Childress, STLMLC STLMLC [id number] Common 14:04:32 Misael [id number] [facility] 2021-05-08 Outpatient Childress, STLMLC STLMLC [id number] Common 12:46:32 Misael [id number] [facility] 2021-05-08 Outpatient Childress, STLMLC STLMLC [id number] Common 12:45:48 Misael [facility] 2021-05-08 Outpatient Childress, STLMLC STLMLC [id number] Common 12:31:35 [facility] 24484 [facility] 2021-05-08 Outpatient Childress, STLMLC STLMLC [id number] Common 12:31:23 [facility] 78539 [facility] 2022-05-16 2022-05-16 (TEL) STLMLC STLMLC [id number] [facility] 00:00:00 00:00:00 [facility] 2022-05-09 2022-05-09 (TEL) STLMLC STLMLC [id number] [facility] 00:00:00 00:00:00 [facility] 2022-05-02 2022-05-02 (TEL) STLMLC STLMLC [id number] [facility] 00:00:00 00:00:00 [facility] 2022-05-02 2022-05-02 (TEL) STLMLC STLMLC [id number] [facility] 00:00:00 00:00:00 [facility] 2022-05-02 2022-05-02 OFFICE STLMLC STLMLC [id number] [facility] 00:00:00 00:00:00 VISIT [facility] ESTAB PT - CHI LEVEL 4 [facility] 2022-03-10 2022-03-10 OFFICE STLMLC STLMLC [id number] [facility] 00:00:00 00:00:00 VISIT [facility] ESTAB PT - CHI LEVEL 4 [facility] 2022-01-07 2022-01-07 OL DIG E/M STLMLC STLMLC [id number] [facility] 00:00:00 00:00:00 [facility] 11-20 Spir it MIN [facility] 2022-01-07 2022-01-07 (TEL) STLMLC STLMLC [id number] Co m[facility] 00:00:00 00:00:00 [facility] 2021-11-29 2021-11-29 [facility]patient [facility] [id number] [place] 00:00:00 00:00:[facility] 2021-11-04 2021-11-04 OFFICE STLMLC STLMLC [id number] [facility] 00:00:00 00:00:00 VISIT [facility] LEVEL 4 [facility] 2021-10-29 2021-10-29 (TEL) STLMLC STLMLC [id number] [facility] 00:00:00 00:00:00 [facility] 2021-08-27 2021-08-27 Outpatient [facility] [id number] [place] 00:00:00 00:00:00 KOBE 428 [facility] 2021-08-19 2021-08-19 Outpatient [facility] 021 [id number] [place] 00:00:00 00:00:00 KOBE 103 [facility] 2021-08-16 2021-08-16 Orders Pritchett, [id number] [facility] 00:00:00 00:00:00 Only Nevaeh [id number] ity of [id number] [place] .[id number] .[id number] [facility] 2021-08-15 2021-08-15 Outpatient [facility] [id number] [place] 00:00:00 00:00:00 KOBE 441 [facility] 2021-08-15 2021-08-15 Outpatient [facility] [id number] [place] 00:00:00 00:00:00 KOBE 580 [facility] 2021-08-14 2021-08-14 (TEL) STLMLC STLMLC [id number] [facility] 00:00:00 00:00:00 [facility] 2021-08-09 2021-08-09 Outpatient [facility] [id number] [place] 00:00:00 00:00:00 KOBE 970 [facility] 2021-07-30 2021-07-30 (TEL) STLMLC STLMLC [id number] [facility] 00:00:00 00:00:00 [facility] 2021-07-24 2021-07-24 (TEL) STLMLC STLMLC [id number] [facility] 00:00:00 00:00:00 [facility] 2021-07-22 2021-07-22 (TEL) STLMLC STLMLC [id number] [facility] 00:00:00 00:00:00 [facility] 2021-07-19 2021-07-19 (TEL) STLMLC STLMLC [id number] [facility] 00:00:00 00:00:00 [facility] 2021-07-04 2021-07-04 OFFICE STLMLC STLMLC [id number] [facility] 00:00:00 00:00:00 [facility] ESTAB PT - CHI LEVEL 4 [facility] 2021-07-04 2021-07-04 INIT STLMLC STLMLC [id number] [facility] 00:00:00 00:00:00 ANNUAL MCR Spi rit WELLNESS - CHI VISIT [facility] 2021-04-24 2021-04-24 OFFICE STLMLC STLMLC [id number] [facility] 00:00:00 00:00:00 VISIT [facility] ESTAB PT - CHI LEVEL 2 [facility] 2021-04-11 2021-04-11 (TEL) STLMLC STLMLC [id number] [facility] 00:00:00 00:00:00 [facility] 2021-04-10 2021-04-10 (TEL) STLMLC STLMLC [id number] [facility] 00:00:00 00:00:00 [facility] 2021-03-12 2021-03-12 OFFICE STLMLC STLMLC [id number] [facility] 00:00:00 00:00:00 VISIT EST Spir it PT LEVEL 3 - CHI [facility] 2021-03-06 2021-03-06 OFFICE STLMLC STLMLC [id number] [facility] 00:00:00 00:00:00 [facility] ESTAB PT - CHI LEVEL 4 [facility] 2021-02-12 2021-02-12 OFFICE STLMLC STLMLC [id number] [facility] 00:00:00 00:00:00 VISIT NEW Spir it PT LEVEL 3 - [facility] 2021-01-30 2021-01-30 (TEL) STLMLC STLMLC [id number] [facility] 00:00:00 00:00:00 [facility] 2021-01-29 2021-01-29 (TEL) STLMLC STLMLC [id number] [facility] 00:00:00 00:00:00 [facility] 2021-01-25 2021-01-25 OFFICE STLMLC STLMLC [id number] [facility] 00:00:00 00:00:00 VISIT EST Spir it PT LEVEL 3 [facility] 2020-12-05 2020-12-05 Outpatient STLMLC STLMLC [id number] Common 00:00:00 00:00:00 [facility] 2020-09-05 2020-09-05 Outpatient STLMLC STLMLC [id number] Common 00:00:00 00:00:00 [facility] 2020-07-03 2020-07-03 Outpatient STLMLC STLMLC [id number] Common 00:00:00 00:00:00 [facility] 2020-07-03 2020-07-03 Outpatient STLMLC STLMLC [id number] Common 00:00:00 00:00:00 [facility] 2020-06-01 2020-06-01 Outpatient STLMLC STLMLC [id number] [facility] 00:00:00 00:00:00 [facility] Results Test Description Test Time Test Comments Results Result Comments Source SARS-CoV-2 (COVID-19) RNA [Presence] in Respiratory sp ecimen by 2021-08-15 20:46:50 ROSALIE with probe detection Test Item Value Reference Range Interpretation Comme nts SARS-CoV-2 (COVID-19) RNA [Presence] in Respiratory specimen by Not detected ROSALIE with probe detection (test code = 38463-9) Whether patient is employed in a healthcare setting (test code = Un known 16546-7) Whether the patient has symptoms related to condition of interest U nknown (test code = 88128-5) Whether the patient was hospitalized for condition of interest Unkn own (test code = 24546-6) Whether the patient was admitted to intensive care unit (ICU) for U nknown condition of interest (test code = 50097-6) Whether patient resides in a congregate care setting (test code = U nknown 57741-0) status (test code = 25574-6) Unknown Date and time of symptom onset (test code = 50568-6) Unknown GORDILLO CHASE MOROCHO
[2022-08-11 10:52] LABS: Hematocrit 46.2 % (39.6-49.0); Lymphocytes % 30.4 % (15.3-44.8); MCV 88.7 fL (80-100); MPV 7.9 fL (7.6-11.3); RBC Red Blood Cell Count 5.21 M/uL (4.33-5.43)
[2022-08-11 11:04] LABS: Specific Gravity 1.008 (1.005-1.030); Urine Bacteria None Seen /HPF (<20); Urine Bilirubin NEGATIVE (Negative); Urine Blood Trace (Negative); Urine Clarity Clear (Clear); Urine Color Colorless (Yellow); Urine Glucose NEGATIVE (Negative); Urine Protein NEGATIVE (Negative); Urine RBC <5 /HPF (None Seen); Urine Urobilinogen Normal (Normal); Urine pH 6.5 (5.0-7.0)
[2022-08-11 11:15] LABS: Albumin 3.9 g/dL (3.4-5.0); Bilirubin Total 0.5 mg/dL (0.2-1.0); Potassium 3.9 mEq/L (3.5-5.1); Protein, Total 7.6 g/dL (6.4-8.2)
--- NOTE | 2022-08-11 11:36 | RAD REPORT ---
EXAM DESCRIPTION: CTAbdomen Pelvis W Contrast - 08/11/2022 11:26 am CLINICAL HISTORY: back pain;Abd pain COMPARISON: No comparisons TECHNIQUE: CT of the abdomen and pelvis was performed. All CT scans are performed using dose optimization technique as appropriate and may include automated exposure control or mA/KV adjustment according to patient size. FINDINGS: Lower chest: Circumferential thickened distal esophagus suggests esophagitis. Liver: Hepatic steatosis Biliary: No biliary ductal dilatation. Stomach: No significant focal abnormality. Duodenum: No significant focal abnormality. Pancreas: No significant abnormality. Spleen: No significant abnormality. Adrenal: 14 mm indeterminate left adrenal nodule. Kidney/ureter: No hydronephrosis. No renal calculi. Retroperitoneum: No retroperitoneal adenopathy. Vascular: No aneurysm. Bowel: No significant focal abnormality. Normal appendix Peritoneum: No ascites or free air. Bladder: Grossly unremarkable. Reproductive: No adnexal masses. Bones: No acute fracture. Remote left-sided rib fractures. Multilevel degenerative changes are presen t in the spine. Other: n/a IMPRESSION: No acute intra-abdominal or pelvic finding. Normal appendix . No urinary tract calculi.
--- NOTE | 2022-08-11 11:59 | EDPHYS ---
Physician Documentation [facility] Name: Carlos Woodall Age: 67 yrs Sex: Male : 1955 Arrival Date: 08/11/2022 Time: 10:15 Bed 6 Private MD: ED Physician Juanito Roth HPI: 08/11 10:45 This 67 yrs old Male presents to ER via Ambulatory with complaints of Abdominal Pain, rn Back Pain. 10:45 The patient presents with pain that is acute, with no known mechanism of injury. The rn symptoms are located in the low back. Onset: The symptoms/episode began/occurred 2 week(s) ago. The pain radiates to the abdomen. Associated signs and symptoms: Pertinent positives: abdominal pain, Pertinent negatives: fever, hematuria, incontinence, urinary retention. The problem was sustained from unknown cause. Modifying factors: The patient symptoms are alleviated by nothing, the patient symptoms are aggravated by any movement. Severity of symptoms: At their worst the symptoms were moderate, in the emergency department the symptoms are unchanged. The patient has not experienced similar symptoms in the past. The patient has been recently seen by a physician:. Pt sent here by Dr. Childress for abd pain and back pain, present for 2 weeks, no injury or trauma, no fever. States has had urine infection in past. NO hx of prostate problems or kidney stones. No chest pain. No sob. NO hematuria. No bowel or bladder problems. . Historical: - Allergies: 10:23 No Known Allergies; jl7 - PMHx: 10:23 diabetes mellitus; Gout; Hypertensive disorder; jl7 - Immunization history:: Adult Immunizations up to date. - Family history:: not pertinent. - Hospitalizations: : No recent hospitalization is reported. ROS: 10:45 Constitutional: Negative for fever, chills, and weight loss, Cardiovascular: Negative rn for chest pain, palpitations, and edema, Respiratory: Negative for shortness of breath, cough, wheezing, and pleuritic chest pain, Abdomen/GI: Negative for nausea, vomiting, diarrhea, and constipation, Back: Negative for injury MS/Extremity: Negative for injury and deformity, Skin: Negative for injury, rash, and discoloration, Neuro: Negative for headache, weakness, numbness, tingling, and seizure. Exam: 10:45 Constitutional: This is a well developed, well nourished patient who is awake, alert, rn and in no acute distress. Head/Face: Normocephalic, atraumatic. Cardiovascular: Regular rate and rhythm. No pulse deficits. Respiratory: No increased work of breathing, no retractions or nasal flaring. Abdomen/GI: Soft, non-tender Back: No spinal tenderness. No costovertebral tenderness. Skin: Warm, dry MS/ Extremity: Pulses equal, no cyanosis. Neuro: Awake and alert, GCS 15, oriented to person, place, time, and situation. Cranial nerves II-XII grossly intact. Motor strength 5/5 in all extremities. Sensory grossly intact. Cerebellar exam normal. Normal gait. Vital Signs: 10:24 BP 158 / 90; Pulse 85; Resp 16; Temp 97.7; Pulse Ox 99% on R/A; Pain 6/10; jl7 11:38 BP 134 / 80; Pulse 82; Resp 16; Pulse Ox 99% on R/A; Pain 7/10; cm9 12:10 BP 126 / 74; Pulse 74; Resp 16; Pulse Ox 99% on R/A; cm9 10:24 Pain Scale: Adult jl7 11:38 Pain Scale: Adult cm9 MDM: 10:21 Patient medically screened. rn 11:57 Differential diagnosis: arthritis, Hydronephrosis Neoplasm Osteoarthritis rn Pyelonephritis sprain, Ureterolithiasis. Data reviewed: vital signs, nurses notes, lab test result(s), radiologic studies, CT scan, and as a result, I will discharge patient. Counseling: I had a detailed discussion with the patient and/or guardian regarding: the historical points, exam findings, and any diagnostic results supporting the discharge/admit diagnosis, lab results, radiology results, the need for outpatient follow up, to return to the emergency department if symptoms worsen or persist or if there are any questions or concerns that arise at home. Response to treatment: There is no appreciated change of the patient's symptoms at this time, and as a result, I will discharge patient. Special discussion: I discussed with the patient/guardian in detail that at this point there is no indication for admission to the hospital. It is understood, however, that if the symptoms persist or worsen the patient needs to return immediately for re-evaluation. ED course: CT abd and pelvis neg for acute findings, + esophagitis which patient knows about and on medication as well as has had esophageal dilations before. Trace blood in urine but no kidney stones or infection, and patient states has had cystoscope that was normal recently. Pt declined muscle relaxer or pain medication. Will dc home. . 08/11 10:28 Order name: CBC with Diff; Complete Time: 11: rn 08/11 10:28 Order name: CMP; Complete Time: 11: rn 08/11 10:28 Order name: Lipase; Complete Time: : rn 08/11 10:28 Order name: Urinalysis w/ reflexes; Complete Time: 11: rn 08/11 10:28 Order name: CT Abd/Pelvis - IV Contrast Only; Complete Time: 11: rn 08/11 10:28 Order name: IV Saline Lock; Complete Time: rn 08/11 10: Order name: Labs collected and sent; Complete Time: :43 rn Administered Medications: No medications were administered Disposition Summary: 08/11/22 11:59 Discharge Ordered Location: Home rn Problem: new rn Symptoms: have improved rn Condition: Stable rn Diagnosis - Low back pain rn - Hematuria, unspecified rn Followup: rn - With: Private Physician - When: As needed - Reason: Recheck today's complaints, Re-evaluation by your physician Discharge Instructions: - Discharge Summary Sheet rn - Acute Back Pain, Adult rn - Hematuria, Adult rn - Pain Without a Known Cause rn Forms: - Medication Reconciliation Form rn - Thank You Letter rn - Antibiotic rn transition - Prescription Opioid Use rn Signatures: Dispatcher [employer] Juanito Middleton MD MD rn Leal, Jahala RN RN jl7
--- NOTE | 2022-08-11 11:59 | ER ---
Nurse's Notes [facility] Name: Carlos Woodall Age: 67 yrs Sex: Male : 1955 Arrival Date: 08/11/2022 Time: 10:15 Bed 6 Private MD: Diagnosis: Low back pain;Hematuria, unspecified Presentation: 08/11 10:24 Chief complaint: Patient states: Lower abdominal pain and low back pain for 2 weeks. No jl7 fever. Notices urinary urgency only. Coronavirus screen: At this time, the client does not indicate any symptoms associated with coronavirus-19. Ebola Screen: Patient denies travel to an Ebola-affected area in the 21 days before illness onset. Initial Sepsis Screen: Does the patient meet any 2 criteria? No. Patient's initial sepsis screen is negative. Does the patient have a suspected source of infection? Yes: Acute abdominal pain. Risk Assessment: Do you want to hurt yourself or someone else? Patient reports no desire to harm self or others. Onset of symptoms was July 25, 2022. 10:24 Method Of Arrival: Ambulatory jl7 10:24 Acuity: CRISTIANO 3 jl7 Triage Assessment: 10:26 General: Appears uncomfortable, Behavior is calm, cooperative, appropriate for age. jl7 Pain: Complains of pain in abdomen Quality of pain is described as aching. Historical: - Allergies: 10:23 No Known Allergies; jl7 - PMHx: 10:23 diabetes mellitus; Gout; Hypertensive disorder; jl7 - Immunization history:: Adult Immunizations up to date. - Family history:: not pertinent. - Hospitalizations: : No recent hospitalization is reported. Screenin:44 [facility] ED Fall Risk Assessment (Adult) History of falling in the last 3 months, cm9 including since admission No falls in past 3 months (0 pts) Confusion or Disorientation No (0 pts) Intoxicated or Sedated No (0 pts) Impaired Gait No (0 pts) Mobility Assist Device Used No (0 pt) Altered Elimination No (0 pt) Score/Fall Risk Level 0 - 2 = Low Risk Maintained a safe environment, Educated pt \T\ family on fall prevention, incl call for assistance when getting out of bed, Assessed \T\ reinforced patient's understanding of fall precautions, Hourly rounding (assess needs \T\ fall precautionary measures) done. Abuse screen: Denies threats or abuse. Nutritional screening: No deficits noted. Tuberculosis screening: No symptoms or risk factors identified. Assessment: 10:44 Reassessment: Patient and/or family updated on plan of care and expected duration. Pain cm9 level reassessed. General: Appears in no apparent distress. Behavior is calm, cooperative, appropriate for age. Pain: Complains of pain in back and abdomen Pain currently is 8 out of 10 on a pain scale. Quality of pain is described as aching, sharp. Neuro: Level of Consciousness is awake, alert, obeys commands, Oriented to person, place, time, situation. Cardiovascular: Capillary refill < 3 seconds Patient's skin is warm and dry. Respiratory: Airway is patent Respiratory effort is even, unlabored. GI: Abdomen is flat, non-distended, Abdomen is tender to palpation in right lower quadrant and left lower quadrant. : Reports urinary frequency. Vital Signs: 10:24 BP 158 / 90; Pulse 85; Resp 16; Temp 97.7; Pulse Ox 99% on R/A; Pain 6/10; jl7 11:38 BP 134 / 80; Pulse 82; Resp 16; Pulse Ox 99% on R/A; Pain 7/10; cm9 12:10 BP 126 / 74; Pulse 74; Resp 16; Pulse Ox 99% on R/A; cm9 10:24 Pain Scale: Adult jl7 11:38 Pain Scale: Adult cm9 ED Course: 10:17 Patient arrived in ED. rg4 10:20 Salma Apodaca, RN is Primary Nurse. cm9 10:21 Juanito Roth MD is Attending Physician. rn 10:23 Arm band placed on Patient placed in an exam room, on a stretcher. jl7 10:26 Triage completed. jl7 10:43 CBC with Diff Sent. cm9 10:43 CMP Sent. cm9 10:43 Lipase Sent. cm9 10:44 Patient has correct armband on for positive identification. Bed in low position. Call cm9 light in reach. Side rails up X 1. 10:44 No provider procedures requiring assistance completed. Inserted saline lock: 20 gauge cm9 in right antecubital area, using aseptic technique. Blood collected. 10:49 Urinalysis w/ reflexes Sent. cm9 11:28 CT Abd/Pelvis - IV Contrast Only In Process Unspecified. EDMS 12:10 IV discontinued, intact, bleeding controlled, No redness/swelling at site. cm9 Administered Medications: No medications were administered Medication: 10:44 VIS not applicable for this client. cm9 Outcome: 11:59 Discharge ordered by . rn 12:10 Discharged to home ambulatory. cm9 12:10 Condition: good 12:10 Discharge instructions given to patient, significant other, Instructed on discharge instructions, follow up and referral plans. Demonstrated understanding of instructions, follow-up care. 12:12 Patient left the ED. cm9 Signatures: Dispatcher [employer] EDMS Juanito Roth MD MD rn Garcia, Rubi rg4 Kathryn Monterroso RN RN jl7 Salma Apodaca RN RN cm9
[2022-08-11 12:18] VITALS: TEMP 97.7; O2SAT 99
[2022-08-11 12:21] VITALS: BP 126/74
== END 2022-08-11 12:12 | disposition home or self-care (01) ==
LOC: ER 10:15
DX: M54.50 Low back pain, unspecified (principal); R31.9 Hematuria, unspecified; I10 Essential (primary) hypertension
CPT/HCPCS: 85025; 81001; 36415; 83690; 80053; 74177; 99284; Q9967

== ENCOUNTER → 2023-05-25 | Emergency (ER) | payer OTHER ==
[~2023-05-25] MED LIST: ASPIRIN 81 MG CHEWABLE TABLET ONE; FAMOTIDINE 20 MG/2 ML VIAL IV ONE
--- OUTSIDE RECORDS SUMMARY | 2023-05-25 08:34 | XMS REPORT | Clinical Summary ---
Author Name Unknown Organization [facility] Address [address] [place] [address] Care Team Providers Care [employer] Name Role Phone Nathanael Jimenez MD Unavailable [phone] Misael Childress DO Unavailable [phone] Social History Tobacco Use Types Packs/Day Years Used Date Smoking Tobacco: Never Assessed Sex and Gender Information Value Date Recorded Sex Assigned at Not on file Gender Identity Not on file Sexual Orientation Not on file Job Start Date Occupation Industry Not on file Not on file Not on file Plan of Treatment Health Maintenance Due Date Last Done Comments COVID-19 Vaccination ( season) 2022 06/30/2020, 06/09/2020 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
[2023-05-25 09:21] LABS: Absolute Lymphocytes (CBC) 1.9 K/uL (0.7-4.9); Hematocrit 49.3 % (39.6-49.0); Lymphocytes % 28.4 % (15.3-44.8); MCV 87.8 fL (80-100); MPV 7.8 fL (7.6-11.3); Platelets 227 thou/uL (152-406); RBC Red Blood Cell Count 5.62 M/uL (4.33-5.43)
[2023-05-25 09:24] LABS: Protime INR 1.12
[2023-05-25 09:40] LABS: Albumin 3.9 g/dL (3.4-5.0); Bilirubin Direct 0.2 mg/dL (0-0.2); Bilirubin Indirect, Calculated 0.5 mg/dL (0.2-0.8); Bilirubin Total 0.7 mg/dL (0.2-1.0); Potassium 4.5 mEq/L (3.5-5.1); Protein, Total 7.5 g/dL (6.4-8.2); Troponin High Sensitivity 57.1 pg/mL (<58.9)
--- NOTE | 2023-05-25 10:19 | RAD REPORT ---
EXAM DESCRIPTION: Kavon Single View05/25/2023 9:37 am CLINICAL HISTORY: CHEST PAIN COMPARISON: Abdomen Pelvis W Contrast dated 08/11/2022 TECHNIQUE: Portable AP view of the chest. FINDINGS: The lungs are clear apart from small focus of opacification at the left lung base, may rel ate to atelectasis or scarring, less likely focal pneumonia. No pneumothorax or effusion. The cardio mediastinal contours are unremarkable. Deformities along some of the posterolateral lower left ribs, may relate to sequelae of prior surgery or trauma IMPRESSION: Nonspecific small focus of opacification in the left lung base as above. No other acute cardiopulmonary process.
--- NOTE | 2023-05-25 10:35 | ER ---
Nurse's Notes [facility] Name: Carlos Woodall Age: 68 yrs Sex: Male : 1955 Arrival Date: 05/25/2023 Time: 08:32 Bed 13 Private MD: Diagnosis: Chest pain, unspecified Presentation: 05/25 08:58 Chief complaint: Patient states: CHEST PAIN X 3 WEEKS THAT COMES AND GOES. Coronavirus db screen: Vaccine status: Patient reports receiving the 2nd dose of the covid vaccine. Client denies travel out of the [place] in the last 14 days. At this time, the client does not indicate any symptoms associated with coronavirus-19. Ebola Screen: Patient negative for fever greater than or equal to 101.5 degrees Fahrenheit, and additional compatible Ebola Virus Disease symptoms Patient denies exposure to infectious person. Patient denies travel to an Ebola-affected area in the 21 days before illness onset. No symptoms or risks identified at this time. Initial Sepsis Screen: Does the patient meet any 2 criteria? No. Patient's initial sepsis screen is negative. Does the patient have a suspected source of infection? No. Patient's initial sepsis screen is negative. Risk Assessment: Do you want to hurt yourself or someone else? Patient reports no desire to harm self or others. Onset of symptoms was May 06, 2023. 08:58 Method Of Arrival: Ambulatory db 08:58 Acuity: CRISTIANO 2 db Triage Assessment: 09:27 General: Appears in no apparent distress. comfortable, Behavior is calm, cooperative. db Pain: Complains of pain in chest. Neuro: Level of Consciousness is awake, alert, obeys commands. Cardiovascular: Reports chest pain. 09:27 Respiratory: Airway is patent Respiratory effort is even, unlabored, Respiratory db pattern is regular, symmetrical. Historical: - Allergies: : No Known Allergies; db - Home Meds: :27 allopurinol 300 mg oral tablet [Active]; Metformin Oral [Active]; losartan 25 mg oral db tablet [Active]; - PMHx: 09:27 diabetes mellitus; Gout; Hypertensive disorder; db - Immunization history:: Adult Immunizations unknown. - Social history:: Smoking status: Patient denies any tobacco usage or history of. Screenin:31 [facility] ED Fall Risk Assessment (Adult) History of falling in the last 3 months, me1 including since admission No falls in past 3 months (0 pts) Confusion or Disorientation No (0 pts) Intoxicated or Sedated No (0 pts) Impaired Gait No (0 pts) Mobility Assist Device Used No (0 pt) Altered Elimination No (0 pt) Score/Fall Risk Level 0 - 2 = Low Risk Maintained a safe environment, Hourly rounding (assess needs \T\ fall precautionary measures) done, Used ambulatory aids as needed (educated on \T\ assisted with). Abuse screen: Denies threats or abuse. Nutritional screening: No deficits noted. Tuberculosis screening: No symptoms or risk factors identified. Assessment: 09:33 Reassessment: Patient appears in no apparent distress at this time. Patient and/or db family updated on plan of care and expected duration. Pain level reassessed. Patient is alert, oriented x 3, equal unlabored respirations, skin warm/dry/pink. General: Appears in no apparent distress. comfortable, Behavior is calm, cooperative. Pain: Complains of pain in chest Pain does not radiate. Pain began gradually. 10:45 Reassessment: Patient is alert, oriented x 3, equal unlabored respirations, skin aa5 warm/dry/pink. Vital Signs: 08:58 BP 133 / 79; Pulse 67; Resp 16; Temp 98; Pulse Ox 98% ; Weight 92.99 kg; Height 6 ft. 1 db in. ; 10:00 BP 129 / 74; Pulse 65; Resp 18; Pulse Ox 98% on R/A; me1 08:58 Body Mass Index 27.05 (92.99 kg, 185.42 cm) db ED Course: 08:34 Patient arrived in ED. mg5 08:35 Dorina Krause PA-C is PHCP. sb4 08:35 Ramy Da Silva DO is Attending Physician. sb4 09:06 Taina Delgadillo, RN is Primary Nurse. db 09:17 Inserted saline lock: 20 gauge in right antecubital area, using aseptic technique. db Blood collected. 09:27 Triage completed. db 09:27 Arm band placed on Patient placed in an exam room. db 09:38 XRAY Chest (1 view) In Process Unspecified. EDMS 10:31 No provider procedures requiring assistance completed. Patient maintains SpO2 me1 saturation greater than 95% on room air. 10:31 Patient has correct armband on for positive identification. Bed in low position. Call me1 light in reach. Side rails up X2. Provided Education on: POC. Verbalized understanding. . Client placed on continuous cardiac and pulse oximetry monitoring. NIBP monitoring applied. atmospheric physics professor on. Pulse ox on. 10:34 Mik Duggan MD is Referral Physician. sb4 10:45 IV discontinued, intact, bleeding controlled, No redness/swelling at site. Pressure aa5 dressing applied. Administered Medications: 09:30 Drug: Famotidine IVP 20 mg IVP once; dilute with 10 mL 0.9% NaCl; give over 2 minutes db Route: IVP; Site: right antecubital; 10:30 Follow up: Response: No adverse reaction me1 09:35 Drug: Aspirin PO Chewable Tablet 324 mg PO once; 81 mg tablets x 4 Route: PO; db 10:30 Follow up: Response: No adverse reaction me1 Medication: 10:45 VIS not applicable for this client. aa5 Outcome: 10:34 Discharge ordered by MD. sb4 10:45 Discharged to home ambulatory, aa5 10:45 Condition: stable 10:45 Discharge instructions given to patient, Instructed on discharge instructions, follow up and referral plans. medication usage, Demonstrated understanding of instructions, follow-up care, medications, 10:48 Patient left the ED. aa5 Signatures: Dispatcher [employer] Cristina Bruno, RN RN aa5 Taina Delgadillo, RN RN db Dorina Krause, PA-C PA-C sb4 Margaret Santoyo, RN RN me1 Etta Laboy mg5 Corrections: (The following items were deleted from the chart) 10:30 08:58 Chief complaint: Patient states: CHEST PAIN X 3 WEEKS THAT COMES AND GOES db me1
--- NOTE | 2023-05-25 10:35 | EDPHYS ---
Physician Documentation [facility] Name: Carlos Woodall Age: 68 yrs Sex: Male : 1955 Arrival Date: 05/25/2023 Time: 08:32 Bed 13 Private MD: ED Physician Ramy Da Silva HPI: 05/25 09:04 This 68 yrs old Male presents to ER via Unassigned with complaints of Chest Pain. sb4 09:04 Patient reports burning bilateral chest pain x 3 weeks. He states that he has been sb4 under a lot of stress with his undergoing treatment for lung cancer. He states that the pain was the worst 3 weeks ago with an episode of diaphoresis and shortness of breath. He states that the pain comes on with exertion but has not been as severe as that initial episode. He denies any cardiac history. He also does report a history of Sellers's esophagus. Historical: - Allergies: :27 No Known Allergies; db - Home Meds: :27 allopurinol 300 mg oral tablet [Active]; Metformin Oral [Active]; losartan 25 mg oral db tablet [Active]; - PMHx: 09:27 diabetes mellitus; Gout; Hypertensive disorder; db - Immunization history:: Adult Immunizations unknown. - Social history:: Smoking status: Patient denies any tobacco usage or history of. ROS: 09:04 Constitutional: Negative for fever, chills, and weight loss, sb4 09:04 Cardiovascular: Positive for chest pain, 09:04 All other systems are negative, Exam: 09:04 Constitutional: This is a well developed, well nourished patient who is awake, alert, sb4 and in no acute distress. Head/Face: Normocephalic, atraumatic. Eyes: Extra-ocular motions intact. Periorbital areas with no swelling, redness, or edema. ENT: Mucous membranes moist. Cardiovascular: Regular rate and rhythm with a normal S1 and S2. Respiratory: Lungs have equal breath sounds bilaterally, clear to auscultation and percussion. No rales, rhonchi or wheezes noted. No increased work of breathing, no retractions or nasal flaring. Abdomen/GI: Soft, non-tender, no distension. Skin: Warm, dry with normal turgor. Normal color with no rashes, no lesions, and no evidence of cellulitis. MS/ Extremity: Pulses equal, no cyanosis. Neurovascular intact. Full, normal range of motion. Vital Signs: 08:58 BP 133 / 79; Pulse 67; Resp 16; Temp 98; Pulse Ox 98% ; Weight 92.99 kg; Height 6 ft. 1 db in. ; 10:00 BP 129 / 74; Pulse 65; Resp 18; Pulse Ox 98% on R/A; me1 08:58 Body Mass Index 27.05 (92.99 kg, 185.42 cm) db MDM: 08:47 Patient medically screened. sb4 09:04 Differential diagnosis: esophagitis, angina, ACS, costochondritis, pleurisy. sb4 10:33 Data reviewed: vital signs, nurses notes, lab test result(s), EKG, radiologic studies, sb4 and as a result, I will discharge patient. Consideration of Admission/Observation Escalation of care including admission/observation considered. Care significantly affected by the following chronic conditions: Diabetes, Hypertension. Scoring Tools HEART Score: History: ECG: Age: Risk Factors: 1 or 2 risk factors (1), Troponin: Total Score = 2. Counseling: I had a detailed discussion with the patient and/or guardian regarding the historical points, exam findings, and any diagnostic results supporting the discharge/admit diagnosis, lab results, radiology results, the need for outpatient follow up, a general dentist, to return to the emergency department if symptoms worsen or persist or if there are any questions or concerns that arise at home. Special discussion: Based on the patient's history, exam, and Dx evaluation, there is no indication for emergent intervention or inpatient Tx. It is understood by the patient/guardian that if the Sx's persist or worsen they need to return immediately for re-evaluation. 05/25 09:02 Order name: Basic Metabolic Panel; Complete Time: :44 sb4 05/25 09:02 Order name: CBC with Diff; Complete Time: 09:22 sb4 05/25 09:02 Order name: LFT's; Complete Time: :44 sb4 05/25 09:02 Order name: Magnesium; Complete Time: :44 sb4 05/25 09:02 Order name: NT PRO-BNP; Complete Time: :44 sb4 05/25 09:02 Order name: PT-INR; Complete Time: 09:26 sb4 05/25 09:02 Order name: Troponin HS; Complete Time: 09:44 sb4 05/25 09:02 Order name: XRAY Chest (1 view); Complete Time: 10:21 sb4 05/25 09:02 Order name: EKG; Complete Time: 09:03 sb4 05/25 09:02 Order name: Cardiac monitoring; Complete Time: 09:42 sb4 05/25 09:02 Order name: EKG - Nurse/Tech; Complete Time: 09:15 sb4 05/25 09:02 Order name: IV Saline Lock; Complete Time: 09:42 sb4 05/25 09:02 Order name: Labs collected and sent; Complete Time: 09:42 sb4 05/25 09:02 Order name: O2 Per Protocol; Complete Time: :42 sb4 05/25 09:02 Order name: O2 Sat Monitoring; Complete Time: :42 sb4 EC:07 Rate is 80 beats/min. Rhythm is regular, Normal Sinus Rhythm. MD interval is normal at sb4 134 msec. QRS interval is normal at 98 msec. QT interval is normal at 372 msec. No Q waves. No ST changes noted. Clinical impression: Normal ECG. Interpreted by me. Reviewed by me. Administered Medications: 09:30 Drug: Famotidine IVP 20 mg IVP once; dilute with 10 mL 0.9% NaCl; give over 2 minutes db Route: IVP; Site: right antecubital; 10:30 Follow up: Response: No adverse reaction me1 09:35 Drug: Aspirin PO Chewable Tablet 324 mg PO once; 81 mg tablets x 4 Route: PO; db 10:30 Follow up: Response: No adverse reaction me1 Disposition: 16:56 I was immediately available on-site in the Emergency Department for consultation in the ms3 care of the patient. Disposition Summary: 05/25/23 10:34 Discharge Ordered Notes: Location: Home sb4 Problem: an ongoing problem sb4 Symptoms: are unchanged sb4 Condition: Stable sb4 Diagnosis - Chest pain, unspecified sb4 Followup: sb4 - With: Mik Duggan MD - When: 1 week - Reason: Recheck today's complaints, Re-evaluation by your physician Discharge Instructions: - Discharge Summary Sheet sb4 - Exercise Stress Test, [id number] sb4 - Nonspecific Chest Pain, Adult, [id number] sb4 Forms: - Thank You Letter sb4 - Patient Portal Instructions sb4 - Leadership Thank You Letter sb4 Signatures: Dispatcher [employer] EDRamy Rothman, DO MEDRANO ms3 Taina Delgadillo, RN RN Dorina Harding, PAEdsonC PAAmparo sb4 Margaret Santoyo RN me1
[2023-05-25 11:01] VITALS: BP 129/74; TEMP 98; O2SAT 98
== END ==
LOC: ER 08:32
DX: R07.9 Chest pain, unspecified (principal); I10 Essential (primary) hypertension; E11.9 Type 2 diabetes mellitus without complications
CPT/HCPCS: 36415; 71045; 80048; 80076; 83735; 83880; 84484; 85025; 85610; 93005

== ENCOUNTER 2023-06-25 10:00 | Inpatient (IN) | payer OTHER ==
[2023-06-23 14:45] LABS: Hematocrit 45.5 % (39.6-49.0); MCHC 35.2 g/dL (32.0-36.0); MCV 88.2 fL (80-100); MPV 8.2 fL (7.6-11.3); Platelets 218 thou/uL (152-406); RBC Red Blood Cell Count 5.16 M/uL (4.33-5.43); Red Cell Distribution Width 13.3 % (12.1-15.2)
[2023-06-23 15:00] LABS: Anion Gap 7.3 mEq/L (5.0-15.0); Potassium 4.3 mEq/L (3.5-5.1)
[2023-06-23 15:02] LABS: PTT, Activated Partial Thromb 31.7 SECONDS (24.3-36.9)
[2023-06-25] MEDS: NA CHLORIDE 0.9% 500 ML ONE (12:55)
[2023-06-25] MEDS ORDERED: LIDOCAINE 1% 20 ML MDV ONE (16:24)
[2023-06-25] MEDS ORDERED: HEPA 1000U/500MLS 2,000 UNIT/1,000 ML BAG IV ONE (16:24)
[2023-06-25] MEDS ORDERED: VERAPAMIL HCL 10 MG/4 ML VIAL IV ONE (16:37)
[2023-06-25] MEDS ORDERED: FENTANYL CITR 100 MCG/2 ML ONE (16:37)
[2023-06-25] MEDS ORDERED: MIDAZOLAM HCL 2 MG/2 ML INJ ONE (16:37)
[2023-06-25] MEDS ORDERED: TICAGRELOR 90 MG TABLET PO ONE (16:38)
[2023-06-25] MEDS ORDERED: CLOPIDOGREL 75 MG TABLET ONE (16:38)
[2023-06-25] MEDS ORDERED: ATROPINE SULF 1 MG/10 ML SYR IV ONE (16:38)
[2023-06-25] MEDS ORDERED: ASPIRIN 325 MG TAB ONE (16:38)
[2023-06-25] MEDS ORDERED: HEPARIN 5000 UNIT/ML 1 ML VIAL ONE (16:38)
[2023-06-25] MEDS ORDERED: HEPARIN 10,000 UNIT/10 ML VIAL IV ONE (16:38)
--- NOTE | 2023-06-25 18:12 | OP ---
Date of Procedure: 06/25/2023 Surgeon: LEANNA SANTIAGO Procedures Performed: 1.Selective coronary angiogram. 2.Left heart catheterization. Indication: Unstable angina. Access: Right radial artery 6-[place]ankan closed with TR band. Complications: None. Bleeding: Less than 50 mL. Description Of Procedure: After risks, benefits, and alternatives were explained, patient agreed to procedure and signed informed consent. The patient was brought into the cardiac catheterization labo banner, prepped and draped in usual sterile fashion. Then, I accessed right radial artery using pedi atric micropuncture kit, placed a 6-[place]ankan Slender sheath, took 5-[place]an [place] 4.0 Catheter into the aortic root over a J-wire, engaged left main and took standard views and then the RCA, took standard views and the catheter was pushed over the wire into the LV, measured the LVEDP. Pullback did not re cord any gradient, then removed the catheter and the sheath, placed TR band with good hemostasis. Findings: 1.Left main: Moderate size and normal. 2.LAD: Proximal diffuse 60% and then after the diagonal takeoff, it is focal 80% heavily calcified and then becomes diffuse 60% long lesion and then the LAD becomes a nice target for bypass and withou t disease. Diagonal 1 has luminal irregularities. 3.Left circumflex: Proximal DOCUMENT CONTROL MANAGER 100% occluded and there were collaterals from the RCA. 4.RCA: Moderate size and mid 40% and gives collaterals to the OM. 5.LVEDP is elevated at 70 mmHg. Conclusion: Severe multivessel disease, typical diabetic arteries. Plan: Transfer for multivessel bypass. SR/MODL Voice ID: [id number] Report ID: [id number]
[2023-06-25] MEDS ORDERED: ONDANSETRON 4 MG/2 ML VIAL IV PRN (18:28)
[2023-06-25] MEDS ORDERED: ACETAMINOPHEN 325 MG TABLET PO PRN (18:28)
--- NOTE | 2023-06-25 18:32 | P.HP ---
Certification for Inpatient Patient admitted to: Inpatient With expected LOS: >2 Midnights Practitioner: I am a practitioner with admitting privileges, knowledge of patient current condition, hospital course, and medical plan of care. Services: Services provided to patient in accordance with Admission requirements found in Title 42 Section 412.3 of the Code of Federal Regulations Patient History Date of Service: 06/25/23 Reason for admission: chest pain History of Present Illness: 68 yo male with past medical history of hypertension, diabetes who had an outpatient left heart catheterization which showed multivessel disease and has been admitted for further management and possible transfer to [facility] for possible CABG. Dr. Duggan performed LHC which showed RIGHT OF WAY MAN left circumflex and proximal LAD lesion along with RCA lesion. CT surgery from [facility] was consulted and awaiting transfer. Denies any chest pain No fever or chills No nausea vomiting or diarrhea Allergies No Known Allergies Allergy (Verified 06/23/23 13:54) Home medications list reviewed: Yes - Past Medical/Surgical History Past Medical History: Reviewed- Non-Contributory -: Diabetes -: Hypertension Past Surgical History: Reviewed- Non-Contributory - Family History Family History: Reviewed- Non-Contributory - Social History Smoking Status: Never smoker Review of Systems 10-point ROS is otherwise unremarkable Physical Examination - Vital Signs Temperature: 96.8 F Blood Pressure: 122/66 Pulse: 62 Respirations: 16 - Physical Exam General: Alert, In no apparent distress, Oriented x3, Cooperative HEENT: Atraumatic, Normocephalic Neck: Supple, JVD not distended Respiratory: Clear to auscultation bilaterally, Normal air movement Cardiovascular: No edema, Normal pulses, Regular rate/rhythm, Normal S1 S2, No gallops Capillary refill: <2 Seconds Gastrointestinal: Soft and benign, W/out hepatosplenomegaly Musculoskeletal: No clubbing, No swelling Integumentary: No rashes, No breakdown Neurological: Normal speech, Normal strength at 5/5 x4 extr, Normal tone, Cranial nerves 3-12 intact, Normal affect Lymphatics: No axilla or inguinal lymphadenopathy Assessment and Plan - Problems (Diagnosis) (1) CAD (coronary artery disease), [place] coronary artery Current Visit: Yes Status: Acute Plan: CAD multivessel disease Appreciate help from cardiology Status post LHC : 1. Left main: Moderate size and normal. 2. LAD: Proximal diffuse 60% and then after the diagonal takeoff, it is focal 80% heavily calcified and then becomes diffuse 60% long lesion and then the LAD becomes a nice target for bypass and without disease. Diagonal 1 has luminal irregularities. 3. Left circumflex: Proximal RIGHT OF WAY MAN 100% occluded and there were collaterals from the RCA. 4. RCA: Moderate size and mid 40% and gives collaterals to the OM. 5. LVEDP is elevated at 70 mmHg. Conclusion: Severe multivessel disease, typical diabetic arteries. CT surgery from [facility] was consulted Awaiting transfer Discussed with cardiology Continue aspirin statin Started on heparin drip (2) Diabetes Current Visit: Yes Status: Chronic Plan: Insulin sliding scale Accu-Chek before every meal and at bedtime Will get an A1c in a.m. (3) Hypertension Current Visit: Yes Status: Chronic Plan: Antihypertensives titrated Continue home medications and titrate as needed Discharge Plan: Transfer Plan to discharge in: 48 Hours - Advance Directives Does patient have a Living Will: No Does patient have a Durable POA for Healthcare: No - Code Status/Comfort Care Code Status: Full Code Time Spent Managing Pts Care (In Minutes): 58
[2023-06-25 18:46] VITALS: O2SAT 96
--- OUTSIDE RECORDS SUMMARY | 2023-06-25 21:17 | XMS REPORT | Clinical Summary ---
Author Name Unknown Organization [facility] [place] Address [address] [place] [address] Care Team Providers Care Box Car Bracer Name Role Phone Nathanael Jimenez MD Unavailable [phone] Misael Childress DO Unavailable [phone] Social History Tobacco Use Types Packs/Day Years Used Date Smoking Tobacco: Never Assessed Sex and Gender Information Value Date Recorded Sex Assigned at Not on file Gender Identity Not on file Sexual Orientation Not on file Job Start Date Occupation Industry Not on file Not on file Not on file Plan of Treatment Health Maintenance Due Date Last Done Comments COVID-19 Vaccine ( season) 2022, 06/09/2020 Influenza Vaccine 12/12/2022 Care Teams Box Car Bracer Relationship Specialty Start Date End Date Nathanael Jimenez MD [address] [place], [place] [id number] PCP - External Referring Dermatology 07/18/21 Misael Childress DO [address] [place] [id number] PCP - External Primary Care Provider Family Practice 07/18/21
[2023-06-25 21:49] VITALS: BMI 26.7
[2023-06-25 22:13] LABS: PT Prothrombin Time 12.6 SECONDS (9.5-12.5); PTT, Activated Partial Thromb 29.7 SECONDS (24.3-36.9); Protime INR 1.15
[2023-06-25] MEDS: HEPARIN/D5W 25,000 UNIT/500 ML BAG IV PRN (23:33)
[2023-06-26 04:52] LABS: Absolute Basophils 0.1 K/uL (0-0.5); Absolute Eosinophils 0.4 K/uL (0-0.5); Absolute Lymphocytes (CBC) 2.8 K/uL (0.7-4.9); Absolute Monocytes 0.8 K/uL (0.1-1.3); Absolute Neutrophil 4.8 K/uL (1.8-8.0); Basophils % 0.8 % (0-1.3); Eosinophils % 4.2 % (0-4.4); Hematocrit 42.2 % (39.6-49.0); Lymphocytes % 31.4 % (15.3-44.8); MCH 31.3 pg (27.0-35.0); MCHC 35.6 g/dL (32.0-36.0); MCV 87.9 fL (80-100); MPV 9.3 fL (7.6-11.3); Monocytes % 8.7 % (3.3-12.3); Neutrophils % 54.9 % (41.7-73.7); Nucleated Red Blood Cells % 0.1 % (0-0); Platelets 205 thou/uL (152-406); Red Cell Distribution Width 13.2 % (12.1-15.2)
[2023-06-26 05:19] LABS: Albumin 3.4 g/dL (3.4-5.0); Albumin/Globulin Ratio 1.2 (1.1-1.8); Anion Gap 9.1 mEq/L (5.0-15.0); Bilirubin Total 0.4 mg/dL (0.2-1.0); Globulin 2.9 g/dL (2.3-3.5); Phosphorus 4.7 mg/dL (2.5-4.9); Protein, Total 6.3 g/dL (6.4-8.2)
[2023-06-26 05:20] LABS: Magnesium 2.2 mg/dL (1.6-2.4); Potassium 4.1 mEq/L (3.5-5.1)
[2023-06-26] MEDS ORDERED: PNEUMOCOCCAL VACCINE 0.5 ML IMVAC ONE (08:00)
[2023-06-26] MEDS ORDERED: ENOXAPARIN 40 MG/0.4 ML SQ SCH (09:00)
--- NOTE | 2023-06-26 10:20 | P.PN ---
Subjective Date of Service: 06/26/23 Chief Complaint: chest pain Subjective: No new changes Pt states he just had a heavy feeling for about a month and went for an outpatient cardiac cath. He was sent from the [facility] for admission to await transfer for a CABG second to 100% occlusion Review of Systems 10-point ROS is otherwise unremarkable General: Unremarkable Cardiovascular: As per HPI Physical Examination - Vital Signs Temperature: 97.8 F Blood Pressure: 113/63 Pulse: 64 Respirations: 14 Pulse Ox (%): 96 - Physical Exam General: Alert, In no apparent distress, Oriented x3 HEENT: Atraumatic, Normocephalic Neck: Supple, 2+ carotid pulse no bruit Respiratory: Normal air movement Cardiovascular: Normal pulses, Regular rate/rhythm Capillary refill: <2 Seconds Gastrointestinal: Soft and benign Musculoskeletal: No clubbing, No swelling Integumentary: No rashes Neurological: Normal speech, Normal tone Lymphatics: No axilla or inguinal lymphadenopathy External genitalia: Deferred Rectal: Deferred - Studies Laboratory Data (last 24 hrs) 06/26/23 06/26/23 06/26/23 09:50 09:45 05:45 WBC Hgb Hct Plt Count PT INR APTT 48.4 H Cancelled Cancelled Sodium Potassium BUN Creatinine Glucose Phosphorus Magnesium Total Bilirubin AST ALT Alkaline Phosphatase 06/26/23 06/26/23 06/26/23 04:30 04:30 04:14 WBC 8.80 Hgb 15.0 Hct 42.2 Plt Count 205 PT INR APTT 41.1 H Sodium 140 Potassium 4.1 BUN 15 Creatinine 0.90 Glucose 114 H Phosphorus 4.7 Magnesium 2.2 Total Bilirubin 0.4 AST 33 ALT 41 Alkaline Phosphatase 62 06/26/23 06/25/23 06/25/23 01:45 21:53 21:53 WBC Hgb Hct Plt Count PT 12.6 H INR 1.15 APTT Cancelled Cancelled 29.7 Sodium Potassium BUN Creatinine Glucose Phosphorus Magnesium Total Bilirubin AST ALT Alkaline Phosphatase Assessment And Plan - Plan Assessment and Plan - Problems (Diagnosis) (1) CAD (coronary artery disease), [place] coronary artery Current Visit: Yes Status: Acute Plan: CAD multivessel disease Appreciate help from cardiology Status post LHC : 1. Left main: Moderate size and normal. 2. LAD: Proximal diffuse 60% and then after the diagonal takeoff, it is focal 80% heavily calcified and then becomes diffuse 60% long lesion and then the LAD becomes a nice target for bypass and without disease. Diagonal 1 has luminal irregularities. 3. Left circumflex: Proximal CARTRIDGE ASSEMBLING MACHINE ADJUSTER 100% occluded and there were collaterals from the RCA. 4. RCA: Moderate size and mid 40% and gives collaterals to the OM. 5. LVEDP is elevated at 70 mmHg. Conclusion: Severe multivessel disease, typical diabetic arteries. CT surgery from [facility] was consulted Awaiting transfer Discussed with cardiology Continue aspirin statin Started on heparin drip (2) Diabetes Current Visit: Yes Status: Chronic Plan: Insulin sliding scale Accu-Chek before every meal and at bedtime Will get an A1c in a.m. (3) Hypertension Current Visit: Yes Status: Chronic Plan: Antihypertensives titrated Continue home medications and titrate as needed Discharge Plan: Transfer Plan to discharge in: 48 Hours - Advance Directives Does patient have a Living Will: No Does patient have a Durable POA for Healthcare: No - Code Status/Comfort Care Code Status: Full Code Discharge Plan: Transfer
--- NOTE | 2023-06-26 17:34 | EKG ---
Test Date: 2023-06-23 Test Time: 14:28:51 Tech Writer: SANDRA MEASUREMENT RESULTS: Intervals: Rate: 70 VA: 134 QRSD: 86 QT: 380 QTc: 410 [place]: P: 62 VA: 134 QRS: -5 T: -70 INTERPRETIVE STATEMENTS: Normal sinus rhythm Nonspecific ST and T wave abnormality Abnormal ECG Compared to ECG 05/25/2023 09:02:01 ST (T wave) deviation now present T-wave abnormality no longer present Possible ischemia no longer present Electronically Signed On 06-26-23 17:25:19 CDT by Mik Duggan
--- NOTE | 2023-06-26 20:39 | CON ---
Date of Consultation: 06/26/2023 Reason For Consultation: Severe coronary artery disease. History Of Present Illness: A 68-year-old male, history of diabetes, hypertension, had coronary rancho ogram as an outpatient yesterday and found to have severe multivessel coronary artery disease involvi ng the LAD and left circumflex with collaterals, the left circumflex from the LAD. The patient was a dmitted for a transfer to have coronary artery bypass surgery on an urgent basis as he is very sympto matic. He is having chest pain with minimal activities. Just to walk from room to room he will get chest pressure which disappears with rest. At resting condition now has no chest pain. Past Medical History: Diabetes, hypertension, coronary artery disease. Medications: Refer reconciliation sheet for detailed list. Allergies: NO KNOWN DRUG ALLERGIES. Family History: No premature coronary artery disease or cancer. Social History: He does not smoke or drink, does not use any drugs. Review of Systems: All systems reviewed are negative except mentioned in HPI. Physical Examination: Vital Signs: Reviewed. Head and Neck: Pupils are equal, reactive to light. Intact eye movements. No JVD. No cervical lym phadenopathy. Neck is supple. Thyroid is not enlarged. Lungs: Clear to auscultation bilaterally. No rhonchi, wheezing, or crackles. No accessory muscle u se. Heart: Regular rate and rhythm. No extra sounds. Abdomen: Soft, nontender. Bowel sounds positive. No organomegaly. No masses or hernia. No rigidi ty or rebound. Extremities: No edema, clubbing, cyanosis. Intact pulses. Skin: No rashes. Neurologic: Alert, awake, oriented x3. No acute focal deficits appreciated. Lymph Nodes: No cervical or axillary lymphadenopathy. Investigations: BUN 15, creatinine 0.9. Hemoglobin is 15. Assessment/recommendation: 1.Chest pain with severe coronary artery disease. This is unstable angina. Continue baby aspirin a nd IV heparin and plan for transfer to [facility]. Discussed the case however with MICHAEL treadwell and plan for coronary artery bypass surgery. 2.Dyslipidemia. Continue Lipitor 40 mg q.h.s. 3.Hypertension. Blood pressure is controlled. 4.Diabetes, being managed by hospitalist. Check sugars 3 times a day and make sure sugars are contr olled before open heart surgery. SR/MODL Voice ID: [id number] Report ID: [id number]
[2023-06-26] MEDS: ATORVASTATIN 20 MG TAB PO SCH (21:49)
[2023-06-26 22:02] VITALS: BP 127/70; TEMP 97.5
[2023-06-27] MEDS ORDERED: allopurinoL 300 MG TAB PO SCH (09:00)
== END 2023-06-26 23:06 | disposition short-term general hospital (02) | DRG 287 ==
LOC: CCL 10:00 → 2ND 21:14
PROVIDERS: ADMIT Family Medicine; ATTEND Hospitalist
PROC: B2111ZZ Fluoroscopy of Multiple Coronary Arteries using Low Osmolar Contrast (ICD-10-PCS; principal; 2023-06-25)
PROC: 4A023N7 Measurement of Cardiac Sampling and Pressure, Left Heart, Percutaneous Approach (ICD-10-PCS; 2023-06-25)
DX: I25.110 Atherosclerotic heart disease of native coronary artery with unstable angina pectoris (principal); I10 Essential (primary) hypertension; E11.9 Type 2 diabetes mellitus without complications; E78.2 Mixed hyperlipidemia
CPT/HCPCS: 36415; 76937; 80048; 80053; 82947; 83735; 84100; 85025; 85027; 85049; 85610; 85730; 93005; 93458; 99152; 99153; C1893; J0461; J1644; J2001; J2250; J3010; J7040; Q9967

== ENCOUNTER 2024-08-05 14:06 | Emergency (ER) | payer OTHER ==
--- OUTSIDE RECORDS SUMMARY | 2024-08-05 14:09 | XMS REPORT | Clinical Summary ---
Author Name Unknown Organization [facility] [place] Address [address] [place] [address] Care Team Providers Care Staker Surveying Name Role Phone Nathanael Jimenez MD Unavailable [phone] Misael Childress DO Unavailable [phone] Social History Tobacco Use Types Packs/Day Years Used Date Smoking Tobacco: Never Assessed Sex and Gender Information Value Date Recorded Sex Assigned at Not on file Legal Sex Male 1:04 PM CDT Gender Identity Not on file Sexual Orientation Not on file Plan of Treatment Health Maintenance Due Date Last Done Comments Pneumococcal Vaccine: 50+ Ye ars (1 of - PCV) 2005 COVID-19 Vaccine ( season) 2023, 06/09/2020 Influenza Vaccine (#1) 2023 Insurance [employer] MEDICARE HMO [employer] MEDICARE HMO Care Teams Staker Surveying Relationship Specialty Start Date End Date Nathanael Jimenez MD [address] [place] [address] [place] [address] [email or web address] PCP - External Referring Dermatology 07/18/21 Misael Childress DO [address] [place] [id number] [email or web address] PCP - External Primary Care Provider Family Practice 07/18/21
[2024-08-05] MEDS ORDERED: DIPHENHYDRAMINE 50 MG/ML VIAL ONE (14:21)
[2024-08-05] MEDS ORDERED: METHYLPREDNISOLONE 125 MG INJ ONE (14:21)
[2024-08-05] MEDS ORDERED: FAMOTIDINE 20 MG/2 ML VIAL IV ONE (14:21)
[2024-08-05] MEDS ORDERED: EPINEPHRINE 1 MG/ML VIAL ONE (14:21)
[2024-08-05 14:46] LABS: Absolute Basophils 0.1 K/uL (0-0.5); Absolute Eosinophils 0.3 K/uL (0-0.5); Absolute Lymphocytes (CBC) 3.8 K/uL (0.7-4.9); Absolute Monocytes 0.7 K/uL (0.1-1.3); Absolute Neutrophil 5.1 K/uL (1.8-8.0); Basophils % 0.6 % (0-1.3); Eosinophils % 3.1 % (0-4.4); Hemoglobin 18.9 g/dL (13.6-17.9); Lymphocytes % 38.4 % (15.3-44.8); MCH 31.4 pg (27.0-35.0); MCHC 35.7 g/dL (32.0-36.0); MCV 87.9 fL (80-100); MPV 8.5 fL (7.6-11.3); Monocytes % 7.3 % (3.3-12.3); Neutrophils % 50.6 % (41.7-73.7); Nucleated RBC Absolute Count 0.1 (0-0); Nucleated Red Blood Cells % 0.5 % (0-0); Platelets 267 thou/uL (152-406); RBC Red Blood Cell Count 6.02 M/uL (4.33-5.43); Red Cell Distribution Width 13.7 % (12.1-15.2)
[2024-08-05 15:06] LABS: Albumin 3.9 g/dL (3.4-5.0); Albumin/Globulin Ratio 1.2 (1.1-1.8); Anion Gap 12.7 mEq/L (5.0-15.0); Bilirubin Direct 0.2 mg/dL (0-0.2); Bilirubin Indirect, Calculated 0.4 mg/dL (0.2-0.8); Bilirubin Total 0.6 mg/dL (0.2-1.0); Globulin 3.3 g/dL (2.3-3.5); Potassium 3.7 mEq/L (3.5-5.1); Protein, Total 7.2 g/dL (6.4-8.2)
--- NOTE | 2024-08-05 17:45 | EDPHYS ---
Physician Documentation [facility] Name: Carlos Woodall Age: 69 yrs Sex: Male : 1955 Arrival Date: 08/05/2024 Time: 14:06 Bed 19 Private MD: ED Physician Ryland Brown HPI: 08/05 15:53 This 69 yrs old Male presents to ER via Ambulatory with complaints of Bee Sting. rt 15:53 Who presents to the ED with innumerable bee stings that occurred just prior to arrival. rt The patient reports that he has a numbness, swelling to his upper lip, has difficulty swallowing and some dyspnea. Denies other acute complaints at this time, symptoms are moderate in severity, no other aggravating or alleviating factors.. Historical: - Allergies: 14: No Known Allergies; ld1 - PMHx: 14:26 diabetes mellitus; Gout; Hypertensive disorder; ld1 - Immunization history:: Adult Immunizations up to date. - Infectious Disease History:: Denies. - Social history:: Smoking status: Patient reports the use of cigarette tobacco products, smokes one pack cigarettes per day. - Family history:: not pertinent. ROS: 15:53 Constitutional: Negative for fever, chills, and weight loss, Cardiovascular: Negative rt for chest pain, palpitations, and edema, Abdomen/GI: Negative for abdominal pain, nausea, vomiting, diarrhea, and constipation, MS/Extremity: Negative for injury and deformity, Skin: Negative for injury, rash, and discoloration, 15:53 ENT: Positive for Lip swelling, difficulty swallowing, 15:53 Respiratory: Positive for shortness of breath, Negative for cough, Exam: 15:53 Constitutional: This is a well developed, well nourished patient who is awake, alert, rt and in no acute distress. Head/Face: Normocephalic, atraumatic. Chest/axilla: Normal chest wall appearance and motion. Nontender with no deformity. No lesions are appreciated. Cardiovascular: Regular rate and rhythm with a normal S1 and S2. No gallops, murmurs, or rubs. Normal PMI, no JVD. No pulse deficits. Respiratory: Lungs have equal breath sounds bilaterally, clear to auscultation and percussion. No rales, rhonchi or wheezes noted. No increased work of breathing, no retractions or nasal flaring. Abdomen/GI: Soft, non-tender, with normal bowel sounds. No distension or tympany. No guarding or rebound. No evidence of tenderness throughout. Skin: Warm, dry with normal turgor. Normal color with no rashes, no lesions, and no evidence of cellulitis. MS/ Extremity: Pulses equal, no cyanosis. Neurovascular intact. Full, normal range of motion. 15:53 ENT: Mild swelling to the upper lip, no visual posterior pharyngeal edema. 15:53 ECG was reviewed by the Attending Physician. 15:53 Respiratory: Faint wheezes heard, no respiratory distress, Vital Signs: 14:24 BP 128 / 70; Pulse 105; Resp 18; Temp 97.8(TE); Pulse Ox 94% on R/A; Weight 95.25 kg; ld1 Height 5 ft. 11 in. ; Pain 0/10; 14:34 BP 130 / 82; Pulse 101; Resp 20 S; Pulse Ox 98% on R/A; aa5 15:00 BP 124 / 71; Pulse 92; Resp 16 S; Pulse Ox 98% on R/A; aa5 16:00 BP 130 / 66; Pulse 86; Resp 16 S; Pulse Ox 98% on R/A; aa5 17:00 BP 133 / 71; Pulse 88; Resp 20 S; Temp 98(O); Pulse Ox 97% on R/A; aa5 14:24 Body Mass Index 29.29 (95.25 kg, 180.34 cm) ld1 14:24 Pain Scale: Adult ld1 MDM: 14:14 Medical Screening Exam initiated rt 17:49 Differential Diagnosis Anaphylaxis, dysrhythmia. Data reviewed: vital signs, nurses rt notes, lab test result(s), EKG. Consideration of Admission/Observation Escalation of care including admission/observation considered. Symptoms resolved with treatment in the ED, he was observed for several hours in the emergency department that recurrence of symptoms, is comfortable with discharge, return precautions were discussed.. I considered the following discharge prescriptions or medication management in the emergency department Medications were administered in the Emergency Department. See MAR. Care significantly affected by the following chronic conditions: Diabetes. Counseling: I had a detailed discussion with the patient and/or guardian regarding the historical points, exam findings, and any diagnostic results supporting the discharge/admit diagnosis, lab results, the need for outpatient follow up, to return to the emergency department if symptoms worsen or persist or if there are any questions or concerns that arise at home. Response to treatment: the patient's symptoms have markedly improved after treatment. 08/05 14:14 Order name: Basic Metabolic Panel; Complete Time: 15:11 rt 08/05 14:14 Order name: CBC with Diff; Complete Time: 15:11 rt 08/05 14:14 Order name: LFT's; Complete Time: 15:11 rt 08/05 14:14 Order name: Troponin HS; Complete Time: 15:11 rt 08/05 14:14 Order name: EKG; Complete Time: 14:15 rt 08/05 14:14 Order name: Cardiac monitoring; Complete Time: 14:38 rt 08/05 14:14 Order name: EKG - Nurse/Tech; Complete Time: 14:38 rt 08/05 14:14 Order name: IV Saline Lock; Complete Time: 14:38 rt 08/05 14:14 Order name: Labs collected and sent; Complete Time: 14:38 rt 08/05 14:14 Order name: O2 Per Protocol; Complete Time: 14:23 rt 08/05 14:14 Order name: O2 Sat Monitoring; Complete Time: 14:23 rt EC:53 Rate is 107 beats/min. Rhythm is regular, Sinus tachycardia with No ectopy. QRS [employer] is rt Normal. VA interval is normal. QRS interval is normal. QT interval is normal. No Q waves. No ST changes noted. Interpreted by me. Administered Medications: 14:24 Drug: diphenhydrAMINE IVP 50 mg IVP once Route: IVP; Site: left wrist; ld1 15:00 Follow up: Response: No adverse reaction aa5 14:24 Drug: Famotidine IVP 20 mg IVP once; dilute with 10 mL 0.9% NaCl; give over 2 minutes ld1 Route: IVP; Site: left wrist; 15:00 Follow up: Response: No adverse reaction aa5 14:24 Drug: MethylPrednisoLONE IVP 125 mg IVP once Route: IVP; Site: left wrist; ld1 15:00 Follow up: Response: No adverse reaction aa5 14:24 Drug: EPINEPHrine 1:1000 Sub-Q 1:1,000 0.3 ml Sub-Q once Route: Sub-Q; Site: right ld1 upper arm; 15:00 Follow up: Response: No adverse reaction aa5 Disposition Summary: 08/05/24 17:45 Discharge Ordered Notes: Location: Home rt Problem: new rt Symptoms: have improved rt Condition: Stable rt Diagnosis - Anaphylactic reaction due to bee sting rt Followup: rt - With: Private Physician - When: 2 - 3 days - Reason: Discharge Instructions: - Discharge Summary Sheet rt - Anaphylactic Reaction, Adult rt Forms: - Medication Reconciliation Form rt - Antibiotic Education rt - Prescription Opioid Use rt - Patient Portal Instructions rt - Leadership Thank You Letter rt Prescriptions: - EpiPen 0.3 mg/0.3 mL Injection Auto-Injector - administer 0.3 milligram INTRAMUSCULAR route once as needed for anaphylactic rt reaction; 2 Each; Refills: 0, Product Selection Permitted - Prednisone 20 mg Oral Tablet - take 2 tablets ORAL route once daily for 5 days; 10 tablet; Refills: 0, Product rt Selection Permitted Signatures: Dispatcher [employer] EDPatricia Rothman RN RN ld1 Ryland Brown MD MD rt Cristina Martinez RN aa5 Corrections: (The following items were deleted from the chart) 14:15 14:15 BASIC METABOLIC PANEL+C.LAB.BRZ ordered. EDMS EDMS 14:15 14:15 CBC+H.LAB.BRZ ordered. EDMS EDMS 14:15 14:15 HEPATIC FUNCTION+C.LAB.BRZ ordered. EDMS EDMS 14:15 14:15 Troponin High Sensitivity+C.LAB.BRZ ordered. EDMS EDMS
--- NOTE | 2024-08-05 17:45 | ER ---
Nurse's Notes [facility] Name: Carlos Woodall Age: 69 yrs Sex: Male : 1955 Arrival Date: 08/05/2024 Time: 14:06 Bed 19 Private MD: Diagnosis: Anaphylactic reaction due to bee sting Presentation: 08/05 14:24 Chief complaint: Patient states: Helped friend who got attacked by bees. Pt reports ld1 being stung several times. Redness and swelling to back, neck - reporting swelling to throat and tingling around mouth. Coronavirus screen: At this time, the client does not indicate any symptoms associated with coronavirus-19. Ebola Screen: No symptoms or risks identified at this time. Onset: The symptoms/episode began/occurred suddenly. Anaphylaxis evaluation, angioedema. Initial Sepsis Screen: Does the patient meet any 2 criteria? No. Patient's initial sepsis screen is negative. Does the patient have a suspected source of infection? No. Patient's initial sepsis screen is negative. Risk Assessment: Do you want to hurt yourself or someone else? Patient reports no desire to harm self or others. Onset of symptoms was August 05, 2024 at 14:26. 14:24 Method Of Arrival: Ambulatory ld1 14:24 Acuity: CRISTIANO 2 ld1 Triage Assessment: 14:26 General: Appears in no apparent distress. comfortable, Behavior is calm, cooperative, ld1 appropriate for age. Pain: Denies pain. EENT: No signs and/or symptoms were reported regarding the EENT system. Neuro: Level of Consciousness is awake, alert, obeys commands, Oriented to person, place, time, situation. Cardiovascular: Capillary refill < 3 seconds Patient's skin is warm and dry. Respiratory: Reports shortness of breath Airway is patent Respiratory effort is even, unlabored, the patient has moderate shortness of breath. GI: Abdomen is flat, non-distended. : No signs and/or symptoms were reported regarding the genitourinary system. Derm: No signs and/or symptoms reported regarding the dermatologic system. Derm: Rash noted that is red. Musculoskeletal: No signs and/or symptoms reported regarding the musculoskeletal system. Historical: - Allergies: 14: No Known Allergies; ld1 - PMHx: 14:26 diabetes mellitus; Gout; Hypertensive disorder; ld1 - Immunization history:: Adult Immunizations up to date. - Infectious Disease History:: Denies. - Social history:: Smoking status: Patient reports the use of cigarette tobacco products, smokes one pack cigarettes per day. - Family history:: not pertinent. Screenin:[facility] ED Fall Risk Assessment (Adult) History of falling in the last 3 months, aa5 including since admission No falls in past 3 months (0 pts) Confusion or Disorientation No (0 pts) Intoxicated or Sedated No (0 pts) Impaired Gait No (0 pts) Mobility Assist Device Used No (0 pt) Altered Elimination No (0 pt) Score/Fall Risk Level 0 - 2 = Low Risk Oriented to surroundings, Maintained a safe environment, Educated pt \T\ family on fall prevention, incl call for assistance when getting out of bed, Assessed \T\ reinforced patient's understanding of fall precautions. Abuse screen: Denies threats or abuse. Nutritional screening: No deficits noted. Tuberculosis screening: No symptoms or risk factors identified. Assessment: 14:25 General: Appears comfortable, Behavior is calm, cooperative. aa5 14:25 Pain: Denies pain. Neuro: Level of Consciousness is awake, alert, obeys commands, aa5 Oriented to person, place, time, situation. Cardiovascular: Heart tones S1 S2 present Rhythm is regular. Respiratory: Airway is patent Respiratory effort is even, unlabored, Respiratory pattern is regular, symmetrical, Breath sounds are clear bilaterally. GI: Abdomen is round non-distended, Bowel sounds present X 4 quads. Abd is soft and non tender X 4 quads. Patient currently denies nausea, vomiting. : No signs and/or symptoms were reported regarding the genitourinary system. EENT: Reports feeling swelling to throat . Derm: Skin is red raised hives noted throughout body, greater to chest, back, yaima arms, and face. Pt reports itching. Musculoskeletal: Range of motion: intact in all extremities. 15:00 Neuro: Level of Consciousness is awake, alert, obeys commands, Oriented to person, aa5 place, time, situation. Respiratory: Airway is patent Respiratory effort is even, unlabored, Respiratory pattern is regular, symmetrical. Derm: hives throughout body. 15:45 Reassessment: Patient is alert, oriented x 3, equal unlabored respirations, skin aa5 warm/dry/pink. Patient states feeling better. Only very mild redness noted to cheeks, no other hives/redness noted to body. . 16:30 Reassessment: Patient is alert, oriented x 3, equal unlabored respirations, skin aa5 warm/dry/pink. 17:30 Reassessment: Patient is alert, oriented x 3, equal unlabored respirations, skin aa5 warm/dry/pink. Vital Signs: 14:24 BP 128 / 70; Pulse 105; Resp 18; Temp 97.8(TE); Pulse Ox 94% on R/A; Weight 95.25 kg; ld1 Height 5 ft. 11 in. ; Pain 0/10; 14:34 BP 130 / 82; Pulse 101; Resp 20 S; Pulse Ox 98% on R/A; aa5 15:00 BP 124 / 71; Pulse 92; Resp 16 S; Pulse Ox 98% on R/A; aa5 16:00 BP 130 / 66; Pulse 86; Resp 16 S; Pulse Ox 98% on R/A; aa5 17:00 BP 133 / 71; Pulse 88; Resp 20 S; Temp 98(O); Pulse Ox 97% on R/A; aa5 14:24 Body Mass Index 29.29 (95.25 kg, 180.34 cm) ld1 14:24 Pain Scale: Adult ld1 ED Course: 14:13 Patient arrived in ED. cj3 14:13 Ryland Brown MD is Attending Physician. rt 14:22 Inserted saline lock: 20 gauge in left wrist, using aseptic technique. Blood collected. ld1 Flushed with 10 mL NS IV inserted by ALISE Cole. 14:23 EKG done, by ED staff, reviewed by Ryland Brown MD. ld1 14:24 Arm band placed on right wrist. aa5 14:24 Patient has correct armband on for positive identification. Placed in gown. Bed in low aa5 position. Call light in reach. Side rails up X 1. Client placed on continuous cardiac and pulse oximetry monitoring. NIBP monitoring applied. real estate professional on. Pulse ox on. NIBP on. 14:26 Triage completed. ld1 14:40 Patricia Da Silva, NASIR is Primary Nurse. ld1 17:00 No provider procedures requiring assistance completed. aa5 18:10 IV discontinued, intact, bleeding controlled, No redness/swelling at site. Pressure ap3 dressing applied. Administered Medications: 14:24 Drug: diphenhydrAMINE IVP 50 mg IVP once Route: IVP; Site: left wrist; ld1 15:00 Follow up: Response: No adverse reaction aa5 14:24 Drug: Famotidine IVP 20 mg IVP once; dilute with 10 mL 0.9% NaCl; give over 2 minutes ld1 Route: IVP; Site: left wrist; 15:00 Follow up: Response: No adverse reaction aa5 14:24 Drug: MethylPrednisoLONE IVP 125 mg IVP once Route: IVP; Site: left wrist; ld1 15:00 Follow up: Response: No adverse reaction aa5 14:24 Drug: EPINEPHrine 1:1000 Sub-Q 1:1,000 0.3 ml Sub-Q once Route: Sub-Q; Site: right ld1 upper arm; 15:00 Follow up: Response: No adverse reaction aa5 Medication: 15:00 VIS not applicable for this client. aa5 Outcome: 17:45 Discharge ordered by . rt 18:10 Discharged to home ambulatory, ap3 18:10 Condition: good 18:10 Discharge instructions given to patient, family, Instructed on discharge instructions, follow up and referral plans. medication usage, Demonstrated understanding of instructions, follow-up care, medications, Prescriptions given X 1, 18:33 Patient left the ED. ap3 Signatures: Cristina Martinez RN RN aa5 Jade Horton RN RN ap3 Patricia aD Silva RN RN ld1 Kelsey Winston Ryan, MD MD rt Natalee Keane cj3 Corrections: (The following items were deleted from the chart) 14:41 14:40 Inserted saline lock: 20 gauge in left wrist, using aseptic technique. Blood ld1 collected. Flushed with 10 mL NS 08/06 09:41 08/05 14:26 Arm band placed on right wrist. ld1 aa5 08/06 09:56 08/05 17:00 BP 133 / 71; Pulse 88bpm; Resp 20bpm; Spontaneous; Pulse Ox 97% RA; aa5 aa5
[2024-08-05 19:49] VITALS: BP 128/70; TEMP 97.8; O2SAT 94
--- NOTE | 2024-08-08 12:16 | EKG ---
Test Date: 2024-08-05 Test Time: 14:27:14 Bus Aide: JONATAN MEASUREMENT RESULTS: Intervals: Rate: 107 VT: 136 QRSD: 90 QT: 368 QTc: 491 [place]: P: 63 VT: 136 QRS: -25 T: 121 INTERPRETIVE STATEMENTS: Sinus tachycardia Inferior infarct, age undetermined Abnormal ECG Compared to ECG 06/23/2023 14:28:51 Myocardial infarct finding now present Sinus rhythm no longer present ST (T wave) deviation no longer present Electronically Signed On 08-08-24 12:09:34 CDT by Jayson Ferguson
== END 2024-08-05 18:33 | disposition home or self-care (01) ==
LOC: ER 14:06
DX: T63.441A Toxic effect of venom of bees, accidental (unintentional), initial encounter (principal); F17.210 Nicotine dependence, cigarettes, uncomplicated
CPT/HCPCS: 93005; 85025; 80048; 36415; 80076; 84484; 96375; 96372; 96374; 99285; J1200; J0171; J2919